=== PATIENT | male | born 1990 | race Caucasian/White ===

== ENCOUNTER 2018-11-15 19:31 | Emergency (ER) | payer MEDICAID ==
--- NOTE | 2018-11-15 20:23 | ED ---
Psychiatric Complaint - HPI Summary HPI Summary: This patient is a 28 year old M presenting to [facility] accompanied by his sister with a chief complaint of SI for awhile without a plan. He reports he has not taken his regularly schedule medications today including Depakote and trazadone Yesterday he cut himself in attempt to harm himself. - History Of Current Complaint Chief Complaint: EDMentalHealth Time Seen by Provider: 11/15/18 20:06 - Allergies/Home Medications Allergies/Adverse Reactions: Allergies Allergy/AdvReac Type Severity Reaction Status Date / Time amoxicillin [From Augmentin] Allergy Unknown Verified 11/15/18 19:36 Reaction Details cefaclor [From Ceclor] Allergy Unknown Verified 11/15/18 19:36 Reaction Details cefuroxime [From Ceftin] Allergy Unknown Verified 11/15/18 19:36 Reaction Details clavulanic acid Allergy Unknown Verified 11/15/18 19:36 [From Augmentin] Reaction Details morphine Allergy Unknown Verified 11/15/18 19:36 Reaction Details Tetanus Vaccines and Toxoid Allergy Unknown Verified 11/15/18 19:36 Reaction Details ziprasidone [From Geodon] Allergy Unknown Verified 11/15/18 19:36 Reaction Details Home Medications: Home Medications Cariprazine HCl [Vraylar] 3 mg PO DAILY 11/15/18 [History Confirmed 11/15/18] Divalproex ER TAB(*) [Depakote ER TAB(*)] 500 mg PO BID 11/15/18 [History Confirmed 11/15/18] Trazodone HCl 25 mg PO DAILY 11/15/18 [History Confirmed 11/15/18] PMH/Surg Hx/FS Hx/Imm Hx Cardiovascular History: Denies: Hx Hypertension Psychiatric History: Reports: Hx Autism Infectious Disease History: No Infectious Disease History: Denies: Traveled Outside the [place] in Last 30 Days Review of Systems Constitutional: Negative Negative: Chest Pain Negative: Shortness Of Breath Negative: Abdominal Pain, Vomiting Positive: Other - laceration Positive: Depressed All Other Systems Reviewed And Are Negative: Yes Physical Exam - Summary Physical Exam Summary: VITAL SIGNS: Reviewed. GENERAL: Patient is a well-developed and nourished male who is lying comfortable in the stretcher. Patient is not in any acute respiratory distress. HEAD AND FACE: No signs of trauma. No ecchymosis, hematomas or skull depressions. No sinus tenderness. EYES: PERRLA, EOMI x 2, No injected conjunctiva, no nystagmus. EARS: Hearing grossly intact. Ear canals and tympanic membranes are within normal limits. MOUTH: Oropharynx within normal limits. NECK: Supple, trachea is midline, no adenopathy, no JVD, no carotid bruit, no c- spine tenderness, neck with full ROM CHEST: Symmetric, no tenderness at palpation LUNGS: Clear to auscultation bilaterally. No wheezing or crackles. CVS: Regular rate and rhythm, S1 and S2 present, no murmurs or gallops appreciated. ABDOMEN: Soft, non-tender. No signs of distention. No rebound no guarding, and no masses palpated. Bowel sounds are normal. EXTREMITIES: FROM in all major joints, no edema, no cyanosis or clubbing. NEURO: Alert and oriented x 3. No acute neurological deficits. Speech is normal and follows commands. SKIN: Dry and warm, Self inflicted laceration over the left wrist. PSYCH: SI without plan Triage Information Reviewed: Yes Vital Signs On Initial Exam: Initial Vitals Temp Pulse Resp BP Pulse Ox 99 F 76 18 125/82 97 11/15/18 19:32 11/15/18 19:32 11/15/18 19:32 11/15/18 19:32 11/15/18 19:32 Vital Signs Reviewed: Yes Diagnostics - Vital Signs Vital Signs Temp Pulse Resp BP Pulse Ox 11/15/18 19:32 99 F 76 18 125/82 97 - Laboratory Result Diagrams: 11/15/18 20:36 11/15/18 20:36 Lab Statement: Any lab studies that have been ordered have been reviewed, and results considered in the medical decision making process. Course/Dx - Course Course Of Treatment: 28 year old M presenting to [facility] accompanied by his sister with a chief complaint of SI for awhile without a plan. Bloodwork, UA, and toxicology report obtained. Patient is medically cleared at 21:29. 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 Wolf, patient will be discharged home with a diagnosis of autism with spectrum disorder. - Differential Dx/Clinical Impression Provider Diagnosis: Autism spectrum disorder Discharge - Sign-Out/Discharge Documenting (check all that apply): Patient Departure Patient Received Moderate/Deep Sedation with Procedure: No - Discharge Plan Condition: Stable Disposition: HOME Patient Education Materials: Autism Spectrum Disorder (DC) Referrals: No Primary Care Phys,NOPCP [Primary Care Provider] - Additional Instructions: Per completion of a mental health evaluation, you are cleared for release and do not require inpatient psychiatric hospitalization at this time. Please go to nearest emergency room or call 911 if safety concerns arise or condition worsens. Important Phone Numbers: [facility] ph:[phone] Su[facility] Prevention [facility] Crisis Services ph:[phone] National Suicide Prevention Lifeline ph:[phone] (7756) [facility] ph:[phone] Alcoholics Anonymous ph:[phone] [facility] ph:[phone] [place] [employer] ph:[phone] Recommendation: Follow up as scheduled with therapist/psychiatrist. - Billing Disposition and Condition Condition: STABLE Disposition: Home - Attestation Statements Document Initiated by Scribe: Yes Documenting Scribe: Stephanie Diehl Provider For Whom Janette is Documenting (Include Credential): Karon Espino MD Scribe Attestation: IStephanie, scribed for Karon Espino MD on 11/16/18 at 0005. Scribe Documentation Reviewed: Yes Provider Attestation: The documentation as recorded by the Stephanie heredia accurately reflects the service I personally performed and the decisions made by Kiersten orlando MD Status of Scribe Document: Viewed
[2018-11-15 20:41] LABS: ABS Basophils 0.1 10^3/ul (0-0.2); ABS Eosinophils 0.1 10^3/ul (0-0.6); ABS Lymphocytes 2.4 10^3/ul (1.0-4.8); ABS Monocytes 0.6 10^3/ul (0-0.8); ABS Neutrophils 4.3 10^3/ul (1.5-7.7); Eosinophil % 1.8 %; Hematocrit 44 % (42-52); Mean Corpuscular HGB Conc 35 g/dL (31-36); Mean Corpuscular Hemoglobin 32 pg (27-31); Mean Corpuscular Volume 93 fL (80-94); Mean Platelet Volume 7.5 fL (7.4-10.4); Nucleated Red Blood Cells % 0.1; Platelet Count 209 10^3/uL (150-450); Red Blood Count 4.67 10^6 /uL (4.18-5.48); Red Cell Distribution Width 14 % (10-15); White Blood Count 7.6 10^3/uL (3.5-10.8)
[2018-11-15 20:57] LABS: ALT 13 U/L (7-52); AST 19 U/L (13-39); Albumin 4.2 g/dL (3.2-5.2); Albumin/Globulin Ratio 1.7 (1-3); Alkaline Phosphatase 49 U/L (34-104); Anion Gap 4 mmol/L (2-11); BUN/Creatinine Ratio 26.3 (8-20); Blood Urea Nitrogen 21 mg/dL (6-24); CO2 Carbon Dioxide 28 mmol/L (22-32); Calcium 9.6 mg/dL (8.6-10.3); Chloride 106 mmol/L (101-111); EGFR African American 141.4 (>60); EGFR Non-African American 116.9 (>60); Globulin 2.5 g/dL (2-4); Glucose 96 mg/dL (70-100); Potassium 4.2 mmol/L (3.5-5.0); Sodium 138 mmol/L (135-145); Total Protein 6.7 g/dL (6.4-8.9)
[2018-11-15 21:09] LABS: Acetaminophen < 15 mcg/mL; Alcohol < 10 mg/dL (<10); Salicylate < 2.50 mg/dL (<30)
[2018-11-15 21:27] LABS: Urine Benzodiazepine Screen None Detected (None Detect); Urine Opiates Screen None Detected (None Detect)
[2018-11-15 21:29] LABS: Urine Appearance Cloudy; Urine Bacteria Absent (Absent); Urine Bilirubin Negative (Negative); Urine Blood Negative (Negative); Urine Color Yellow; Urine Glucose Negative (Negative); Urine Ketones Negative (Negative); Urine Nitrite Negative (Negative); Urine Protein Negative (Negative); Urine Red Blood Cell 2+(6-10/hpf) (Absent); Urine Specific Gravity 1.023 (1.010-1.030); Urine Squamous Epithelial Cell Present (Absent); Urine Urobilinogen Negative (Negative); Urine White Blood Cell 2+(11-20/hpf) (Absent)
[2018-11-15 22:45] VITALS: BP 121/74
== END 2018-11-15 22:15 | disposition home or self-care (01) ==
LOC: ED 19:31
DX: F84.0 Autistic disorder (principal); R45.851 Suicidal ideations; F32.9 Major depressive disorder, single episode, unspecified; Z88.0 Allergy status to penicillin; Z88.2 Allergy status to sulfonamides; Z79.899 Other long term (current) drug therapy
CPT/HCPCS: 36415; 80053; 80164; 80307; 80320; 80329; 81003; 81015; 84443; 85025; 87086; 99284; G0480

== ENCOUNTER 2019-03-07 17:18 | Emergency (ER) | payer MEDICAID ==
--- NOTE | 2019-03-07 18:02 | ED ---
Seizure - HPI Summary HPI Summary: Patient with history of seizure disorder complains of witnessed seizure today lasting a couple minutes. Patient states history of seizures once or twice a month despite being compliant with medications. Patient neurologist Dr. Muse at [facility]. Patient presents to the ED alert and oriented, with no complaints at this time. Denies any other pain, injury or symptoms. - History Of Current Complaint Chief Complaint: EDSeizure Hx Obtained From: Patient Onset/Duration: Sudden Onset, Lasting Minutes Severity Of Seizure: Self-Limited Aggravating Factor(s): Nothing Alleviating Factor(s): Nothing Associated Signs And Symptoms: Negative - Allergies/Home Medications Allergies/Adverse Reactions: Allergies Allergy/AdvReac Type Severity Reaction Status Date / Time amoxicillin [From Augmentin] Allergy Unknown Verified 03/07/19 17:41 Reaction Details cefaclor [From Ceclor] Allergy Unknown Verified 03/07/19 17:41 Reaction Details cefuroxime [From Ceftin] Allergy Unknown Verified 03/07/19 17:41 Reaction Details clavulanic acid Allergy Unknown Verified 03/07/19 17:41 [From Augmentin] Reaction Details morphine Allergy Unknown Verified 03/07/19 17:41 Reaction Details Tetanus Vaccines and Toxoid Allergy Unknown Verified 03/07/19 17:41 Reaction Details ziprasidone [From Geodon] Allergy Unknown Verified 03/07/19 17:41 Reaction Details PMH/Surg Hx/FS Hx/Imm Hx Endocrine/Hematology History: Denies: Hx Anticoagulant Therapy Cardiovascular History: Denies: Hx Hypertension, Hx Pacemaker/ICD History: Denies: Hx Dialysis Sensory History: Denies: Hx Eye Prosthesis Opthamlomology History: Denies: Hx Legally Blind EENT History: Denies: Hx Deafness Neurological History: Denies: Hx Developmental Delay Psychiatric History: Reports: Hx Autism, Hx of Violent Episodes Against Others Denies: Hx Eating Disorder Infectious Disease History: No Infectious Disease History: Denies: Traveled Outside the [place] in Last 30 Days - Family History Known Family History: Positive: Non-Contributory - Social History Alcohol Use: None Substance Use Type: Reports: None Smoking Status (MU): Never Smoked Tobacco Review of Systems Constitutional: Negative Eyes: Negative ENT: Negative Cardiovascular: Negative Respiratory: Negative Gastrointestinal: Negative Genitourinary: Negative Musculoskeletal: Negative Skin: Negative Neurological: Negative Psychological: Normal All Other Systems Reviewed And Are Negative: Yes Physical Exam Triage Information Reviewed: Yes Vital Signs On Initial Exam: Initial Vitals Temp Pulse Resp BP Pulse Ox 98.0 F 70 16 111/72 98 03/07/19 17:28 03/07/19 17:28 03/07/19 17:28 03/07/19 17:28 03/07/19 17:28 Vital Signs Reviewed: Yes Appearance: Positive: Well-Appearing Skin: Positive: Warm Head/Face: Positive: Normal Head/Face Inspection Eyes: Positive: Normal ENT: Positive: Normal ENT inspection Dental: Negative: Dental Fracture @, Bleeding Neck: Positive: Supple Respiratory/Lung Sounds: Positive: Clear to Auscultation Cardiovascular: Positive: Normal Abdomen Description: Positive: Nontender Musculoskeletal: Positive: Normal Neurological: Positive: Normal Psychiatric: Positive: Normal AVPU Assessment: Alert - Datto Coma Scale Best Eye Response: 4 - Spontaneous Best Motor Response: 6 - Obeys Commands Best Verbal Response: 5 - Oriented Coma Scale Total: 15 Procedures - Sedation Patient Received Moderate/Deep Sedation with Procedure: No Diagnostics - Vital Signs Vital Signs Temp Pulse Resp BP Pulse Ox 03/07/19 17:38 74 16 120/69 99 03/07/19 17:37 64 23 98 03/07/19 17:28 98.0 F 70 16 111/72 98 - Laboratory Result Diagrams: 03/07/19 18:14 03/07/19 18:14 Lab Statement: Any lab studies that have been ordered have been reviewed, and results considered in the medical decision making process. Course/Dx - Course Course Of Treatment: Patient with history of seizure disorder complains of witnessed seizure today lasting a couple minutes. Patient states history of seizures once or twice a month despite being compliant with medications. Patient neurologist Dr. Muse at [facility]. Patient presents to the ED alert and oriented, with no complaints at this time. Denies any other pain, injury or symptoms. Vital signs within normal limits. Labs unremarkable. Patient compliant with medication. We'll advise patient follow up with neurologist Dr. Micha sauer [facility] for recurrent seizures. Patient understands and approves plan. - Diagnoses Provider Diagnoses: Seizure disorder Discharge ED - Sign-Out/Discharge Documenting (check all that apply): Patient Departure - Discharge Plan Condition: Stable Disposition: HOME Patient Education Materials: Recurrent Seizures in Adults (ED) Referrals: No Primary Care Phys,NOPCP [Primary Care Provider] - Additional Instructions: Follow-up with your neurologist for recurrent seizures. - Billing Disposition and Condition Condition: STABLE Disposition: Home - Attestation Statements Provider Attestation: I was available for consult. This patient was seen by the LAUREN. The patient was not presented to, seen by, or examined by me. Richard Avila MD
--- OUTSIDE RECORDS SUMMARY | 2019-03-07 18:13 | XMS REPORT | Summary of Care ---
:1990 Demographics Address [address] [place] [address] Home Phone Mobile Phone Email Address Preferred Language Kosovan Marital Status Not or Yarsanism Affiliation Unknown Race White Ethnic Group Not or Author Organization [facility] Address 1 [facility] [place] [address] Care Team Providers Name Role Phone Lucia Ernandez MD Primary Care Provider Reason for Visit Reason Comments Neurologic Problem hospital f/u, recurrent seizures, right handed Encounter Details Date Type Department Care Team Description 02/24/2019 Office Visit [facility] Roselia Man, Seizure disorder (HCC) [address] RAMIREZ-C (Primary Dx) [place] [address] [phone] [place] [address] Allergies Active Allergy Reactions Severity Noted Date Comments Augmentin Hives 09/17/2007 Cefaclor Monohydrate Hives 09/17/2007 Cefuroxime Hives 09/17/2007 Morphine Hives 02/26/2008 Pertussis Immune Globulin Unknown Reaction 09/03/2013 Tetanus Toxoid Swelling 02/26/2008 Ziprasidone Other 02/17/2010 Made b/p go up and come down Geodon documented as of this encounter (statuses as of 02/24/2019) Medications Medication Sig Dispensed Refills Start Date End Date Status TRAZODONE HCL PO Take 25 mg by 0 Active mouth EVERY BEDTIME. divalproex (DEPAKOTE Take 1 Tab by 60 Tab 3 12/30/2018 Active ER) 250 MG Oral TABLET mouth TWICE DAILY. SR 24 HR In addition to 500 mg for total of 750 mg twice daily divalproex (DEPAKOTE Take 1 Tab by 60 Tab 3 12/30/2018 Active ER) 500 MG Oral TABLET mouth TWICE DAILY. SR 24 HR In addition to 250 mg for total of 750 mg twice daily Cariprazine HCl Take 3 mg by mouth 30 Cap 0 02/19/2019 Active (VRAYLAR) 3 MG Oral DAILY. Cap documented as of this encounter (statuses as of 02/24/2019) Active Problems Problem Noted Date Recurrent seizures 12/30/2018 Chest pain 11/03/2018 Bipolar 2 disorder 09/26/2018 Overview: -continue home dose of lithium and vraylar -[place] level pending Personality disorder, unspecified 05/05/2018 Overview: -Patient has a history of personality disorder -He has been admitted multiple times for his suicidal ideation as well as behavioral issues -Currently stable Fracture of metacarpal base of right hand, closed 12/21/2016 Closed displaced fracture of carpal bone of right wrist with routine 2016 healing Myopia of both eyes 10/31/2016 Marfan's syndrome 09/01/2013 Overview: -Stable 08/28/12: Echocardiogram FINAL IMPRESSION: Normal LV size and wall thickness. Normal LV systolic function with no regional wall motion abnormalities and estimated LV EF 55-60%. Normal LA size. Mildly dilated RA and RV size and preserved RV function. Structurally normal aortic valve. Mild mitral valve scalloping with mild mitral regurgitation. Mild tricuspid and pulmonic regurgitation. No pulmonary hypertension. No pericardial effusion. Stretched PFO with left to right shunt and calculated Qp:Qs 1.26. Normal ascending aorta and arch. In direct visual comparison with resting images from [facility] dated 02/20/2010, there is no significant interval change. Seizure disorder 09/17/2007 Overview: -Patient presents to ED in a postictal phase after being found by his mother seizing -In the ED, the patient also had another episode of seizure and was given Ativan -Patient states that he just forgot to take his dose of Depakote today -Lab in the ED showed patient has subtherapeutic levels of valproic acid -Patient receiving 500 mg of Depacon, will continue with home dose of Depakote in the morning -Patient to receive MRI in the morning, neurology -Patient to be placed on telemetry -[place] level pending -seizure precaution ADHD (attention deficit hyperactivity disorder) 09/17/2007 Overview: -Stable documented as of this encounter (statuses as of 02/24/2019) Immunizations Name Administration Dates Next Due DTAP Vaccine 02/25/1997, 05/18/1993, 1992, 1992, 1992 HIB 1992, 1992, 1992 Hepatitis A Vaccine Peds 01/11/2009 Hepatitis B Vaccine 02/25/1997, 1992, 1992 Influenza Virus Vaccine Pres Free 6-35 04/24/1993, 03/21/1993 Months MENINGOCOCCAL CONJUGATE VACCINE 01/11/2009 MMR VACCINE 02/25/1997, 05/18/1993 Polio - Inactivated Vaccine 02/25/1997, 05/18/1993, 1992, 1992 documented as of this encounter Social History Tobacco Use Types Packs/Day Years Used Date Current Every Day Smoker Cigarettes 1 1.5 Smokeless Tobacco: Never Used Comments: "over a pack a day" Alcohol Use Drinks/Week oz/Week Comments Yes occasionally, last drank 1 drink 10 days ago Sex Assigned at Date Recorded Not on file Job Start Date Occupation Industry Not on file Not on file Not on file Travel History Travel Start Travel End No recent travel history available. documented as of this encounter Last Filed Vital Signs Vital Sign Reading Time Taken Comments Blood Pressure 105/65 02/24/2019 9:57 AM EDT Pulse 71 02/24/2019 9:57 AM EDT Temperature - - Respiratory Rate - - Oxygen Saturation - - Inhaled Oxygen Concentration - - Weight 71.2 kg (157 lb) 02/24/2019 9:57 AM EDT Height 194.3 cm (6' 4.5") 02/24/2019 9:57 AM EDT Body Mass Index 18.86 02/24/2019 9:57 AM EDT documented in this encounter Patient Instructions Patient InstructionsRoselia Man PA-C - 02/24/2019 10:00 AM EDTCut back on caffeine. Try to go to bed earlier, around 10:30pm Please do the blood work as discussed at 2 orange section. Will inform you of these results. Follow up here in Neurology in 6 weeks. Call in the meantime if there are any new problems or concerns documented in this encounter Progress Notes Roselia Man PA-C - 02/24/2019 10:00 AM EDT PATIENT: Rob Flor : 1990 DATE OF SERVICE: 02/24/2019 REFERRING PRACTITIONER: Art PRIMARY CARE PROVIDER: Lucia Ernandez CHIEF COMPLAINT: Chief Complaint Patient presents with Neurologic Problem hospital f/u, recurrent seizures, right handed HISTORY OF PRESENT ILLNESS: Rob Flor is a 29-y.o. male who presents for a follow-up of seizures. He was admitted to the [facility] on 02/16 due to suicidal thoughts. Medications were not changed. Reports he is doing well. He is taking Depakote 750 mg twice daily. Denies missing any doses, taking at 10 am and 10 pm. He is going to bed later around 11:30 or after as he stays up late playing video games. He has been having 1-2 episodes per week of seizures where his eyes will go back and forth and flutter for up to 5 minutes. Had an episode of full body convulsions 2 weeks ago. Denies any loss of bowelor bladder control. These episodes are witnessed by his friend sometimes and sometimes by his mother. He is unaware of them happening. Reports afterward episodes, he feels dizzy described as "feels like my head is spinning" and has badheadache. Past Medical History: Diagnosis Date ADHD (attention deficit hyperactivity disorder) 09/17/2007 Autistic disorder Depression Generalized convulsive epilepsy Marfan's disease Seizure disorder (HCC) 09/17/2007 Past Surgical History: Procedure Laterality Date KNEE ARTHROSCOPY Left 05/10/2016 ACL and meniscus surgery PECTUS DEFORMITY REPAIR TONSILLECTOMY TYMPANOSTOMY, LOCAL/TOPIC ANESTHESIA x4 Family History Problem Relation Age of Onset Alcohol/Drug Sister Depression/Depressed Sister Bipolar Disorder Sister Hay Fever Father Asthma Father Allergies Father No Known Problems Mother Diabetes No family history Glaucoma No family history Blindness No family history Macular Degeneration No family history Other Eye Problems No family history Current Outpatient Medications Medication Sig Cariprazine HCl (VRAYLAR) 3 MG Oral Cap Take 3 mg by mouth DAILY. divalproex (DEPAKOTE ER) 250 MG Oral TABLET SR 24 HR Take 1 Tab by mouth TWICE DAILY. In addition to 500 mg for total of 750 mg twice daily divalproex (DEPAKOTE ER) 500 MG Oral TABLET SR 24 HR Take 1 Tab by mouth TWICE DAILY. In addition to 250 mg for total of 750 mg twice daily TRAZODONE HCL PO Take 25 mg by mouth EVERY BEDTIME. No current facility-administered medications for this visit. Allergies Allergen Reactions Augmentin Hives Ceclor Cd [Cefaclor Monohydrate] Hives Ceftin [Cefuroxime] Hives Morphine Hives Pertussis Immune Globulin Unknown Reaction Tetanus Toxoid Swelling Ziprasidone Other Made b/p go up and come down [place] Social History Socioeconomic History Marital status: Single Spouse name: Not on file Number of children: Not on file Years of education: Not on file Highest education level: Not on file Occupational History Not on file Social Needs Financial resource strain: Not on file Food insecurity: Worry: Not on file Inability: Not on file Transportation needs: Medical: Not on file Non-medical: Not on file Tobacco Use Smoking status: Current Every Day Smoker Packs/day: 1.00 Years: 1.50 Pack years: 1.50 Types: Cigarettes Smokeless tobacco: Never Used Tobacco comment: "over a pack a day" Substance and Sexual Activity Alcohol use: Yes Comment: occasionally, last drank 1 drink 10 days ago Drug use: Not Currently Types: Marijuana Comment: no drug use, none X 3 mos Sexual activity: Never Partners: Female Lifestyle Physical activity: Days per week: Not on file Minutes per session: Not on file Stress: Not on file Relationships Social connections: Talks on phone: Not on file Gets together: Not on file Attends yazidism service: Not on file Active member of club or organization: Not on file Attends meetings of clubs or organizations: Not on file Relationship status: Not on file Intimate partner violence: Fear of current or ex partner: Not on file Emotionally abused: Not on file Physically abused: Not on file Forced sexual activity: Not on file Other Topics Concern Not on file Social History Narrative Not working. REVIEW OF SYSTEMS: A comprehensive review of systems was negative except for as noted in the history of present illness/subjective. PHYSICAL EXAMINATION: BP 105/65 (BP Location: Right arm, Patient Position: Sitting) | Pulse 71 | Ht 6' 4.5" (1.943 m) |Wt 157 lb (71.2 kg) | BMI 18.86 kg/m Body mass index is 18.86 kg/m. GENERAL: alert, oriented, no acute distress. SKIN: normal, no rashes or abnormalities noted. HEENT: pupils equal, round, reactive to light, extraocular movement intact and normal dentition. NECK: supple, no masses, no adenopathy, no bruit. LUNGS: clear to auscultation bilaterally. HEART: regular rhythm, no murmurs, no gallops, no rubs. EXTREMITIES: no clubbing, cyanosis, or edema, normal pulses. NEUROLOGICAL: Alert and oriented x3. Visual purvis are full to confrontation, PERRL, EOM intact, no nystagmus. Facial sensation is intact bilaterally, Face is symmetric with normal eye closure and smile. Hearingis normal to whisper test. Palate symmetrical. Phonation is normal. Head turning and shoulder shrug are intact. Tongue is midline with normal movements Motor: Muscle tone normal, proximal and distal strength 5/5 B/L upper and lower extremities Sensory exam normal in all extremities. DTRs intact, plantar reflexes downgoing bilaterally Coordination: finger to nose normal bilaterally, test for rapid alternating movements normal and cerebellar arm drift absent bilaterally. Gait and station: normal IMPRESSION/PLAN: ICD-9-CM ICD-10-CM 1. Seizure disorder (HCC) 345.90 G40.909 VALPROIC ACID Advised patient to decrease caffeine intake and try to go to bed earlier at night. We will do blood work to check Depakote level and may need to increase Depakote dose. If he continues to have frequent seizure episodes, will consider 24 hour ambulatory EEG. Follow up here in Neurology in 6 weeks. Call in the meantime if there are any new problems or concerns Close monitoring of AED levels, blood chemistries and blood counts is indicated to observe for toxicity and to maintain therapeutic levels. Author: Roselia Man PA-C 02/24/2019 10:17 documented in this encounter Plan of Treatment Date Type Specialty Care Team Description 03/02/2019 Office Visit [facility] Lucia Ernandez MD [address] [place] [id number] 04/07/2019 Office Visit Neurology Roselia Man PA-C [address] [place] [address] [phone] 11/18/2019 Office Visit Cardiology Kitty Iglesias CRNP 1 [place] [address] [phone] Name Type Priority Associated Diagnoses Order Schedule VALPROIC ACID Lab Routine Seizure disorder (HCC) Expected: 02/24/2019 (Approximate), Expires: 02/25/2020 COMPREHENSIVE METABOLIC Lab Routine Seizure disorder (HCC) Expected: 2018 PANEL (Approximate), Expires: 02/25/2020 Health Maintenance Due Date Last Done Comments PNEUMOCOCCAL 0-64 YRS (1 of - 01/26/1998 PPSV23) DEPRESSION SCREENING 2004 HIV SCREENING 01/26/2007 INFLUENZA VACCINE (#1) 2019 MENINGOCOCCAL VACCINE IMM Completed 01/11/2009 HPV IMMUNIZATION SERIES Aged Out No longer eligible based on patient's age to complete this topic documented as of this encounter Goals Goal Patient Goal Associated Recent Patient-Stated? Author Type Problems Progress Depression Depression No pablo Nassar (PHQ-9) MALINDA Urban total score < 5 Note: This is an individualized treatment (depression) goal for Rob Flor: Displayed above is your goal for a depression screening (PHQ-9) score that would indicate good control of your depression. Work with your Postal Carrier General No Rajni Nassar RN Note: This is an individualized treatment (frequent ED use) goal for Rob Flor : Please work with your Postal Carrier, who will assist you in meeting your goals of care. Keep a regular sleep schedule Lifestyle No Rajni Nassar RN Note: This is an individualized lifestyle goal for Rob Flor: Please maintain a regular sleep schedule. This may help with some symptoms of depression. Regular appointments with primary care provider Lifestyle No Rajni Nassar RN (PCP) Note: This is an individualized lifestyle goal for Rob Flor: Please schedule regular visits with your primary care provider (PCP). Care provided in your PCP's office can help reduce your need for additional trips to the Emergency Room. Take all prescribed medications as directed Self-management No Rajni Nassar RN Note: This is an individualized self-management goal for Rob Flor: Please take all prescribed medications as directed. 1. Do not skip doses. If you cannot afford your medications, talk with your doctor. 2. Use a pill reminder system such as a pill box if needed. Your pharmacist can help you with this. 3. Contact your Pharmacy 5 days before your medication runs out. If you cannot take your medications for any reasons, talk with your doctor. 4. Please bring all of your medication bottles and inhalers (or a list of all your medications/inhalers) with you to every visit. Potential barriers to meeting all of your care plan goals will continue to be addressed on an ongoing basis. documented as of this encounter Results Not on filedocumented in this encounter Visit Diagnoses Diagnosis Seizure disorder (HCC) - Primary Unspecified epilepsy without mention of intractable epilepsy documented in this encounter Insurance Payer Benefit Plan / Subscriber ID Effective Dates Phone Address Type Group [place] xxxxxxxx 2016-Present [place] Guarantor Name Account Type Relation to Date of Phone Billing Patient Address ChachoRob Dheeraj Personal/Family 1990 [address] ([place]) [place] [address] documented as of this encounter Advance Directives Code Status Date Activated Date Inactivated Comments Full Code 11/03/2018 4:20 AM 11/03/2018 1:51 PM Does the patient have decision making capacity? Yes Order was discussed with: Patient I discussed all options and patient/surrogate requested and agreed to: Full Code Full Code 09/26/2018 1:48 AM 09/27/2018 11:42 AM Does the patient have decision making capacity? Yes Order was discussed with: Patient I discussed all options and patient/surrogate requested and agreed to: Full Code
--- OUTSIDE RECORDS SUMMARY | 2019-03-07 18:13 | XMS REPORT | Summary of Care ---
:1990 Demographics Address [address] [place] [address] Home Phone Mobile Phone Email Address Preferred Language Ethiopian Marital Status Not or Episcopalian Affiliation Unknown Race White Ethnic Group Not or Author Organization [facility] Address 1 [facility] [place] [address] Care Team Providers Name Role Phone Lucia Ernandez MD Primary Care Provider Reason for Visit Reason Comments Back Pain Encounter Details Date Type Department Care Team Description 02/13/2019 Emergency [facility] Department Trae Wan MD Emergency [address] 1 [facility] [place] [address] [place] [address] [phone] Allergies Active Allergy Reactions Severity Noted Date Comments Augmentin Hives 09/17/2007 Cefaclor Monohydrate Hives 09/17/2007 Cefuroxime Hives 09/17/2007 Morphine Hives 02/26/2008 Pertussis Immune Globulin Unknown Reaction 09/03/2013 Tetanus Toxoid Swelling 02/26/2008 Ziprasidone Other 02/17/2010 Made b/p go up and come down Geodon documented as of this encounter (statuses as of 02/14/2019) Medications Medication Sig Dispensed Refills Start Date End Date Status Cariprazine HCl Take by mouth 0 Active (VRAYLAR) 1.5 MG Oral DAILY. Cap TRAZODONE HCL PO Take 25 mg by [...] for total of 750 mg twice daily indomethacin (INDOCIN) Take 1 Cap by 60 Cap 0 02/13/2019 Active 50 MG Oral Cap mouth THREE TIMES DAILY NEEDED (for rib pain). documented as of this encounter (statuses as of 02/14/2019) Active Problems Problem Noted Date Recurrent seizures 12/30/2018 Chest pain 11/03/2018 Bipolar 2 disorder 09/26/2018 Overview: -continue home dose of lithium and vraylar -[place] level pending Personality disorder, unspecified 05/05/2018 Overview: [...] neurology -Patient to be placed on telemetry -[place] level pending -seizure precaution ADHD (attention deficit hyperactivity disorder) 09/17/2007 Overview: -Stable documented as of this encounter (statuses as of 02/14/2019) Immunizations Name Administration Dates Next Due DTAP [...] Cigarettes 1 1.5 Smokeless Tobacco: Never Used Alcohol Use Drinks/Week oz/Week Comments Yes occasionally Sex Assigned at Date Recorded Not on file Job Start Date Occupation Industry Not on file Not on file Not on file Travel History Travel Start Travel End No recent travel history available. documented as of this encounter Last Filed Vital Signs Vital Sign Reading Time Taken Comments Blood Pressure 104/60 02/13/2019 7:26 PM EDT Pulse 69 02/13/2019 7:26 PM EDT Temperature 36.8 02/13/2019 7:26 PM EDT C (98.3 F) Respiratory Rate 16 02/13/2019 7:26 PM EDT Oxygen Saturation 99% 02/13/2019 7:31 PM EDT Inhaled Oxygen Concentration - - Weight - - Height 193 cm (6' 4") 02/13/2019 7:26 PM EDT Body Mass Index - - documented in this encounter Discharge Instructions Trae Pinto MD - 02/13/2019See attached. AttachmentsThe following attachments cannot be sent through Care Everywhere.RIB CONTUSION (AFTERCARE(R) INSTRUCTIONS(ER/ED)) (BELARUSIAN)documented in this encounter Plan of Treatment Date Type Specialty Care Team Description 11/18/2019 Office Visit Cardiology Kitty Iglesias CRNP 1 [place] [address] Health Maintenance Due Date Last Done Comments PNEUMOCOCCAL 0-64 YRS (1 of 1 - 01/26/1998 PPSV23) DEPRESSION SCREENING 2004 HIV SCREENING 01/26/2007 INFLUENZA VACCINE (#1) 2019 MENINGOCOCCAL VACCINE IMM Completed 01/11/2009 HPV IMMUNIZATION SERIES Aged Out No longer eligible based on patient's age to complete this topic documented as of this encounter Goals Goal Patient Goal Associated Recent Patient-Stated? Author Type Problems Progress Depression Depression pablo Franco (PHQ-9) MALINDA Urban total score < 5 Note: This is an individualized treatment (depression) goal for Rob Flor: Displayed above is your goal for a depression screening (PHQ-9) score that would indicate good control of your depression. Work with your Calender Feeder General No Rajni Nassar RN Note: This is an individualized treatment (frequent ED use) goal for Rob Flor : Please work with your Calender Feeder, who will assist you in meeting your goals of care. Keep a regular sleep schedule Lifestyle Rajni Franco RN Note: This is an individualized lifestyle goal for Rob Flor: Please maintain a regular sleep schedule. This may help with some symptoms of depression. Regular appointments with primary care provider Lifestyle Rajni Franco RN (PCP) Note: This is an individualized lifestyle goal for Rob Flor: Please schedule regular visits with your primary care provider (PCP). Care provided in your PCP's office can help reduce your need for additional trips to the Emergency Room. Take all prescribed medications as directed Self-management Rajni Franco RN Note: This is an individualized self-management [...] ongoing basis. documented as of this encounter Procedures Procedure Name Priority Date/Time Associated Diagnosis Comments XR RIBS UNILAT WITH STAT 02/13/2019 9:10 PM Results for this PA CHEST MIN 3 EDT procedure are in VIEWS RIGHT the results section. documented in this encounter Results XR RIBS UNILAT WITH PA CHEST MIN 3 VIEWS RIGHT (02/13/2019 9:10 PM EDT) Specimen Impressions Performed At 1. No displaced right rib fracture. Clear lungs. Signed by Gumaro Ramirez on 02/13/2019 9:14 PM Narrative Performed At Procedure: XR RIBS UNILAT WITH PA CHEST MIN 3 VIEWS RIGHT Date of service: 02/13/2019 9:05 PM History: 29 years, Male, "R lateral, lower rib pain, trauma" Technique: 1 PA view of chest and 2 views of right ribs Comparison: 12/30/18 Findings: The cardiomediastinal silhouette is within normal limits. The lungs are clear. There is no pleural effusion or pneumothorax. There is no displaced right rib fracture. Procedure Note Interface, Rad Results - 02/13/2019 9:16 PM EDT Procedure: XR RIBS UNILAT WITH PA CHEST MIN 3 VIEWS RIGHT Date of service: 02/13/2019 9:05 PM History: 29 years, Male, "R lateral, lower rib pain, trauma" Technique: 1 PA view of chest and 2 views of right ribs Comparison: 12/30/18 Findings: The cardiomediastinal silhouette is within normal limits. The lungs are clear. There is no pleural effusion or pneumothorax. There is no displaced right rib fracture. IMPRESSION 1. No displaced right rib fracture. Clear lungs. Signed by Gumaro Ramirez on 02/13/2019 9:14 PM documented in this encounter Visit Diagnoses Diagnosis Rib pain - Primary Chest pain, unspecified documented in this encounter Administered Medications Medication Order MAR Action Action Date Dose Rate Site HYDROcodone-acetaminophen (NORCO) Given 02/13/2019 8:37 PM EDT 1 Tab 5-325 mg 1 Tab 1 Tab, Oral, NOW, 1 dose, 02/13/19 at 2034 documented in this encounter Insurance Payer Benefit Plan / Subscriber ID Effective Dates Phone Address Type Group [place] xxxxxxxx 2016-Present [place] Guarantor Name Account Type Relation to Date of Phone Billing Patient Address Rob Flor Personal/Family 1990 [address] ([address]) [place] [address] documented as of this encounter Advance Directives [...]
--- OUTSIDE RECORDS SUMMARY | 2019-03-07 18:13 | XMS REPORT | Clinical Summary ---
:1990 Demographics Address [address] [place] [address] Home Phone Mobile Phone Email Address Preferred Language Slovenian Marital Status Not or Taoism Affiliation Unknown Race White Ethnic Group Not or Author Organization [facility] Address [address] [place] [address] Care Team Providers Name Role Phone Lucia Ernandez MD Primary Care Provider Allergies Active Allergy Reactions Severity Noted Date Comments Augmentin Hives 09/17/2007 Cefaclor Monohydrate Hives 09/17/2007 Cefuroxime Hives 09/17/2007 Morphine Hives 02/26/2008 Pertussis Immune Globulin Unknown Reaction 09/03/2013 Tetanus Toxoid Swelling 02/26/2008 Ziprasidone Other 02/17/2010 Made b/p go up and come down Geodon Medications Medication Sig Dispensed Refills Start Date [...] Active (VRAYLAR) 3 MG Oral DAILY. Cap Active Problems Problem Noted Date Recurrent seizures 12/30/2018 Chest pain 11/03/2018 Bipolar 2 disorder 09/26/2018 Overview: -continue home dose of lithium and vraylar -[place] level pending Personality disorder, unspecified 05/05/2018 Overview: [...] neurology -Patient to be placed on telemetry -[place] level pending -seizure precaution ADHD (attention deficit hyperactivity disorder) 09/17/2007 Overview: -Stable Encounters Date Type Specialty Care Team Description 02/19/2019 Telephone Family Practice [facility] 02/13/2019 Emergency Emergency Medicine [facility] Trae Ferrell MD 02/13/2019 Office Visit [facility] Tk, Abbie of back, Paty, DIAL BRUSHER initial encounter (Primary Dx) 02/09/2019 - Emergency Emergency Medicine Oleg Ogden Emergency 02/10/2019 MD Karson 02/09/2019 Telephone Family Practice Patt Sevilla Show 02/08/2019 - Emergency Emergency Medicine Emergency 02/09/2019 02/07/2019 Emergency Emergency Medicine Emergency 02/05/2019 Emergency Emergency Medicine Emergency 02/05/2019 Orders Only Family Practice Lucia Ernandez MD 2019 Emergency Emergency Medicine Josue Bar, Emergency 01/10/2019 Emergency Emergency Medicine [facility] Emergency Cortney, DO 12/30/2018 Office Visit Neurology Roselia Man Recurrent praveen Singh PA-C ([facility]) (Primary Dx) 12/30/2018 Emergency Emergency Medicine [facility] Emergency Trae Ferrell MD 12/30/2018 Emergency Emergency Medicine Emergency 12/30/2018 Orders Only Neurology Roselia Man PA-C 12/28/2018 Emergency Emergency Medicine Josue Bar, Emergency 12/22/2018 Emergency Emergency Medicine Mohinder Gregorio, Emergency 12/22/2018 Telephone Neurology Jennifer Lam Rj 12/19/2018 Emergency Emergency Medicine Josue Bar, Emergency 12/17/2018 Emergency Emergency Medicine Emergency 12/11/2018 Emergency Emergency Medicine Oleg Ogden MD 12/08/2018 - Emergency Emergency Medicine [facility], Emergency 12/09/2018 Enrico Martinez MD 12/05/2018 Emergency Emergency Medicine [facility], 11/24/2018 Hospital Encounter Radiology Outpatient from Last 3 Months Immunizations Name Administration Dates Next Due DTAP Vaccine 02/25/1997, 05/18/1993, 1992, 1992, 1992 HIB 1992, 1992, 1992 Hepatitis A Vaccine Peds 01/11/2009 Hepatitis B Vaccine 02/25/1997, 1992, 1992 Influenza Virus Vaccine Pres Free 6-35 04/24/1993, 03/21/1993 Months MENINGOCOCCAL CONJUGATE VACCINE 01/11/2009 MMR VACCINE 02/25/1997, 05/18/1993 Polio - Inactivated Vaccine 02/25/1997, 05/18/1993, 1992, 1992 Family History Medical History Relation Name Comments Allergies Father Asthma Father Hay Fever Father No Known Problems Mother Alcohol/Drug Sister Bipolar Disorder Sister Depression/Depressed Sister Blindness No family history Diabetes No family history Glaucoma No family history Macular Degeneration No family history Other Eye Problems No family history Relation Name Status Comments Father Alive Mother Alive Sister Social History Tobacco Use Types Packs/Day Years Used Date Current Every Day Smoker Cigarettes 1 1.5 Smokeless Tobacco: Never Used Tobacco Cessation: Ready to Quit: No; Counseling Given: Yes Comments: "over a pack a day" Alcohol Use Drinks/Week oz/Week Comments Yes occasionally, last drank 1 drink 10 days ago Sex Assigned at Date Recorded Not on file Job Start Date Occupation Industry Not on file Not on file Not on file Travel History Travel Start Travel End No recent travel history available. Last Filed Vital Signs Vital Sign Reading Time Taken Comments Blood Pressure 82/61 02/18/2019 6:01 AM EDT Pulse 86 02/18/2019 6:00 AM EDT Temperature 36.9 02/18/2019 6:00 AM EDT C (98.4 F) Respiratory Rate 18 02/18/2019 6:00 AM EDT Oxygen Saturation 98% 02/15/2019 11:05 PM EDT Inhaled Oxygen Concentration - - Weight 69.2 kg (152 lb 9.6 oz) 02/16/2019 8:00 AM EDT Height 194.3 cm (6' 4.5") 02/15/2019 11:30 PM EDT Body Mass Index 18.33 02/15/2019 11:30 PM EDT Plan of Treatment Date Type Specialty Care Team Description 03/02/2019 Office Visit Family Practice Lucia Ernandez MD [address] [place] [phone] 11/18/2019 Office Visit Cardiology Kitty Iglesias CRNP [address] [place] [address] Health Maintenance Due Date Last Done Comments PNEUMOCOCCAL 0-64 YRS (1 of - 01/26/1998 PPSV23) DEPRESSION SCREENING 2004 HIV SCREENING 01/26/2007 INFLUENZA VACCINE (#1) 2019 MENINGOCOCCAL VACCINE IMM Completed 01/11/2009 HPV IMMUNIZATION SERIES Aged Out No longer eligible based on patient's age to complete this topic Goals Goal Patient Goal Associated Recent Patient-Stated? Author Type Problems Progress Depression Depression No Cesario, screen (PHQ-9) MALINDA Urban total score < 5 Note: This is an individualized treatment (depression) goal for Rob Flor: Displayed above is your goal for a depression screening (PHQ-9) score that would indicate good control of your depression. Work with your Preload Supervisor General Rajni Franco RN Note: This is an individualized treatment (frequent ED use) goal for Rob Flor : Please work with your Preload Supervisor, who will assist you in meeting your goals of care. Keep a regular sleep schedule Rajni Clinton RN Note: This is an individualized lifestyle [...] to be addressed on an ongoing basis. Procedures Procedure Name Priority Date/Time Associated Comments Diagnosis CBC NO DIFFERENTIAL STAT 02/15/2019 9:24 Results for this PM EDT procedure are in the results section. ACETAMINOPHEN LEVEL STAT 02/15/2019 9:24 Results for this PM EDT procedure are in the results section. SALICYLATE LEVEL STAT 02/15/2019 9:24 Results for this PM EDT procedure are in the results section. ALCOHOL LEVEL, MEDICAL STAT 02/15/2019 9:24 Results for this PM EDT procedure are in the results section. URINE DRUG SCREEN STAT 02/15/2019 9:24 Results for this PM EDT procedure are in the results section. THYROID STIMULATING STAT 02/15/2019 9:24 Results for this HORMONE PM EDT procedure are in the results section. COMPREHENSIVE STAT 02/15/2019 9:24 Results for this METABOLIC PANEL PM EDT procedure are in the results section. XR RIBS UNILAT WITH PA STAT 02/13/2019 9:10 Results for this CHEST MIN 3 VIEWS PM EDT procedure are in RIGHT the results section. URINE DRUG SCREEN STAT 02/09/2019 10:47 Results for this PM EDT procedure are in the results section. CBC NO DIFFERENTIAL STAT 02/09/2019 10:39 Results for this PM EDT procedure are in the results section. ACETAMINOPHEN LEVEL STAT 02/09/2019 10:39 Results for this PM EDT procedure are in the results section. SALICYLATE LEVEL STAT 02/09/2019 10:39 Results for this PM EDT procedure are in the results section. ALCOHOL LEVEL, MEDICAL STAT 02/09/2019 10:39 Results for this PM EDT procedure are in the results section. THYROID STIMULATING STAT 02/09/2019 10:39 Results for this HORMONE PM EDT procedure are in the results section. COMPREHENSIVE STAT 02/09/2019 10:39 Results for this METABOLIC PANEL PM EDT procedure are in the results section. CBC NO DIFFERENTIAL STAT 02/08/2019 9:18 Results for this PM EDT procedure are in the results section. ACETAMINOPHEN LEVEL STAT 02/08/2019 9:18 Results for this PM EDT procedure are in the results section. SALICYLATE LEVEL STAT 02/08/2019 9:18 Results for this PM EDT procedure are in the results section. ALCOHOL LEVEL, MEDICAL STAT 02/08/2019 9:18 Results for this PM EDT procedure are in the results section. URINE DRUG SCREEN STAT 02/08/2019 9:18 Results for this PM EDT procedure are in the results section. THYROID STIMULATING STAT 02/08/2019 9:18 Results for this HORMONE PM EDT procedure are in the results section. COMPREHENSIVE STAT 02/08/2019 9:18 Results for this METABOLIC PANEL PM EDT procedure are in the results section. XR ANKLE MIN 3 VIEWS STAT 2019 5:19 Results for this LEFT (STANDARD) PM EDT procedure are in the results section. ALCOHOL LEVEL, MEDICAL STAT 01/10/2019 5:39 Results for this AM EDT procedure are in the results section. IN PT/ED 12 LEAD EKG STAT 01/10/2019 5:28 AM EDT VALPROIC ACID STAT 12/30/2018 4:31 Results for this AM EDT procedure are in the results section. SALICYLATE LEVEL STAT 12/30/2018 4:31 Results for this AM EDT procedure are in the results section. ALCOHOL LEVEL, MEDICAL STAT 12/30/2018 4:31 Results for this AM EDT procedure are in the results section. ACETAMINOPHEN LEVEL STAT 12/30/2018 4:31 Results for this AM EDT procedure are in the results section. NT PROBNP STAT 12/30/2018 4:31 Results for this AM EDT procedure are in the results section. TROPONIN STAT 12/30/2018 4:31 Results for this AM EDT procedure are in the results section. COMPREHENSIVE STAT 12/30/2018 4:31 Results for this METABOLIC PANEL AM EDT procedure are in the results section. CBC WITH DIFFERENTIAL STAT 12/30/2018 4:31 Results for this AM EDT procedure are in the results section. IN PT/ED 12 LEAD EKG STAT 12/30/2018 4:14 AM EDT XR CHEST 2 VIEW PA AND STAT 12/30/2018 4:13 Results for this LATERAL (STANDARD) AM EDT procedure are in the results section. VALPROIC ACID STAT 12/22/2018 9:29 Results for this PM EDT procedure are in the results section. CHEM 8 I-STAT (POCT) Routine 12/19/2018 8:36 Results for this PM EDT procedure are in the results section. COMPREHENSIVE STAT 12/19/2018 8:33 Results for this METABOLIC PANEL PM EDT procedure are in the results section. CBC WITH DIFFERENTIAL STAT 12/19/2018 8:33 Results for this PM EDT procedure are in the results section. VALPROIC ACID STAT 12/19/2018 8:33 Results for this PM EDT procedure are in the results section. URINE CULTURE (C&S) STAT 12/17/2018 9:34 Results for this PM EDT procedure are in the results section. URINE MICROSCOPIC WITH STAT 12/17/2018 9:34 Results for this REFLEX CULTURE PM EDT procedure are in the results section. URINALYSIS (LAB) WITH STAT 12/17/2018 9:34 Results for this REFLEX CULTURE PM EDT procedure are in the results section. URINE DRUG SCREEN STAT 12/17/2018 9:34 Results for this PM EDT procedure are in the results section. VALPROIC ACID STAT 12/17/2018 8:49 Results for this PM EDT procedure are in the results section. CBC NO DIFFERENTIAL STAT 12/17/2018 8:49 Results for this PM EDT procedure are in the results section. ACETAMINOPHEN LEVEL STAT 12/17/2018 8:49 Results for this PM EDT procedure are in the results section. SALICYLATE LEVEL STAT 12/17/2018 8:49 Results for this PM EDT procedure are in the results section. ALCOHOL LEVEL, MEDICAL STAT 12/17/2018 8:49 Results for this PM EDT procedure are in the results section. THYROID STIMULATING STAT 12/17/2018 8:49 Results for this HORMONE PM EDT procedure are in the results section. COMPREHENSIVE STAT 12/17/2018 8:49 Results for this METABOLIC PANEL PM EDT procedure are in the results section. ACETAMINOPHEN LEVEL STAT 12/11/2018 7:00 Results for this PM EDT procedure are in the results section. SALICYLATE LEVEL STAT 12/11/2018 7:00 Results for this PM EDT procedure are in the results section. ALCOHOL LEVEL, MEDICAL STAT 12/11/2018 7:00 Results for this PM EDT procedure are in the results section. THYROID STIMULATING STAT 12/11/2018 7:00 Results for this HORMONE PM EDT procedure are in the results section. COMPREHENSIVE STAT 12/11/2018 7:00 Results for this METABOLIC PANEL PM EDT procedure are in the results section. CBC WITH DIFFERENTIAL STAT 12/11/2018 7:00 Results for this PM EDT procedure are in the results section. XR CHEST 2 VIEW PA AND STAT 12/08/2018 11:38 Results for this LATERAL (STANDARD) PM EDT procedure are in the results section. IN PT/ED 12 LEAD EKG STAT 12/08/2018 10:18 Precordial pain Results for this PM EDT procedure are in the results section. URINE CULTURE (C&S) STAT 12/05/2018 2:57 Results for this AM EDT procedure are in the results section. URINE MICROSCOPIC WITH STAT 12/05/2018 2:57 Results for this REFLEX CULTURE AM EDT procedure are in the results section. URINALYSIS (LAB) WITH STAT 12/05/2018 2:57 Results for this REFLEX CULTURE AM EDT procedure are in the results section. URINE DRUG SCREEN STAT 12/05/2018 2:57 Results for this AM EDT procedure are in the results section. IN PT/ED 12 LEAD EKG STAT 12/05/2018 2:06 Seizure (HCC) Results for this AM EDT procedure are in the results section. PROLACTIN STAT 12/05/2018 2:03 Results for this AM EDT procedure are in the results section. VALPROIC ACID STAT 12/05/2018 2:03 Results for this AM EDT procedure are in the results section. COMPREHENSIVE STAT 12/05/2018 2:03 Results for this METABOLIC PANEL AM EDT procedure are in the results section. CBC WITH DIFFERENTIAL STAT 12/05/2018 2:03 Results for this AM EDT procedure are in the results section. CT CHEST ABDOMEN Routine 11/24/2018 6:28 Marfan's syndrome Results for this PELVIS ANGIOGRAPHY PM EDT procedure are in [facility] the results section. from Last 3 Months Results URINE DRUG SCREEN (02/15/2019 9:24 PM EDT)Only the most recent of5 resultswithin the time period is included. Amphetamines Negative Negative [facility] Barbiturates Negative Negative [facility] Benzodiazepine Negative Negative [facility] Cannabinoids Negative Negative [facility] Cocaine Negative Negative [facility] Methadone Negative Negative [facility] Opiates Negative Negative [facility] Oxycodone Negative Negative [facility] Phencyclidine Negative Negative [facility] Propoxyphene Negative Negative [facility] Specimen Urine Narrative Performed At Drug Name [facility] Cut-off Level Amphetamine (AMP/METH) 1000 ng/ml Barbiturates (LILLY) 200 ng/ml Benzodiazepines (JIM) 200 ng/ml Cannabinoids (THC) 50 ng/ml Cocaine (SANA) 300 ng/ml Methadone (MTD) 300 ng/ml Opiates (OPI) 300 ng/ml Oxycodone (OXY) 100 ng/ml Phencyclidine (PCP) 25 ng/ml Propoxyphene (PPX) 300 ng/ml Test results from this drug screen are to be used for medical purposes only. If positive, the sample is presumed to contain detectable drug concentrations equal to or greater than the cut-off concentrations listed above. A positive result indicates the presence of the drug or drug metabolite and does not indicate the level of intoxication or urinary concentration. Confirmation is available upon request to [facility]. Request for confirmation must be made within 5 days of the drug screen result. Performing Organization Address City/State/Zipcode Phone Number [facility] [address] [place] [address] [phone] THYROID STIMULATING HORMONE (02/15/2019 9:24 PM EDT)Only the most recent of5 resultswithin the time period is included. TSH 0.72 0.47 - 4.68 uIu/ml [facility] Specimen Blood Performing Organization Address [facility] Phone Number [facility] [address] [place] [address] SALICYLATE LEVEL (02/15/2019 9:24 PM EDT)Only the most recent of6 resultswithin the time period is included. Salicylate <1 (L) 2 - 20 mg/dl [facility] Specimen Blood Performing Organization Address [facility] Phone Number [facility] [address] [place] [address] [phone] COMPREHENSIVE METABOLIC PANEL (02/15/2019 9:24 PM EDT)Only the most recent of8 resultswithin the time period is included. Sodium 140 134 - 145 mmol/L [facility] Potassium 3.9 3.5 - 5.1 mmol/L [facility] Chloride 104 98 - 107 mmol/L [facility] CO2 27 22 - 30 mmol/L [facility] Calcium 9.7 8.3 - 10.1 mg/dl [facility] Albumin 4.3 3.5 - 5.0 g/dl [facility] BUN 14 9 - 20 mg/dl [facility] Creatinine 0.8 0.8 - 1.5 mg/dl [facility] Glucose 94 70 - 99 mg/dl [facility] Total Protein 7.4 6.3 - 8.2 g/dl [facility] Total Bilirubin 0.3 0.0 - 1.1 MG/DL [facility] AST 31 17 - 59 U/L [facility] ALT 20 (L) 21 - 72 U/L [facility] Alkaline 58 40 - 150 U/L [facility] Phosphatase [facility] eGFR >60 See Interpretation [facility] Comment: Below ml/min/1.73ml [facility] Estimated GFR Interpretation: Above 60ml/min/1.73m2 = Normal Renal Function 30-59 ml/min/1.73m2 = Stage 3 Chronic Kidney Disease 15-29 ml/min/1.73m2 = Stage 4 Chronic Kidney Disease Less than 15 ml/min/1.73m2 = Stage 5 Chronic Kidney Disease The GFR value is calculated using the Modification of Diet in Renal Disease ( MDRD) Study Equation which can be found at: https://www.kidney.org/content/rblq-zpcvo-ftvugcot BUN/Creatinine 18 6 - 22 RATIO [facility] Ratio [facility] Anion Gap 9 3 - 11 mmol/L [facility] A/G Ratio 1.4 0.8 - 2.0 ratio [facility] Specimen Blood Performing Organization Address [facility] Phone Number [facility] [address] [facility] [place] [address] ALCOHOL LEVEL, MEDICAL (02/15/2019 9:24 PM EDT)Only the most recent of7 resultswithin the time period is included. Blood Alcohol <10.00 0.00 - 10.00 [facility] MG/DL [facility] Alcohol % Comment: None None Detected % [facility] Detected [facility] Specimen Blood Performing Organization Address [facility] Phone Number [facility] [address] [place] [address] ACETAMINOPHEN LEVEL (02/15/2019 9:24 PM EDT)Only the most recent of6 resultswithin the time period is included. Acetaminophen <10.0 10 .0 - 30.0 ug/mL [facility] Specimen Blood Performing Organization Address [facility] Phone Number [facility] [address] [place] [address] CBC NO DIFFERENTIAL (02/15/2019 9:24 PM EDT)Only the most recent of4 resultswithin the time period is included. WBC Count 7.40Comment: 4.23 - 9.07 [facility] Methodology was K/uL [facility] changed 06/05/2018. Please note updated reference range and units. RBC Count 4.95 4.30 - 5.89 [facility] M/UL [facility] Hemoglobin 15.9 13.7 - 17.5 [facility] g/dL [facility] Hematocrit 45.5 40.1 - 51.0 % [facility] MCV 91.9 79.0 - 92.2 [facility] FL [facility] MCH 32.1 25.7 - 32.2 [facility] PG [facility] MCHC 34.9 32.3 - 36.5 [facility] g/dL [facility] Platelet Count 186 163 - 337 [facility] K/uL [facility] MPV 9.2 (L) 9.4 - 12.4 FL [facility] RDW 12.3 11.6 - 14.4 % [facility] Specimen Blood Performing Organization Address City/State/Zipcode Phone Number [facility] [address] [place] [address] XR RIBS UNILAT WITH PA CHEST MIN [...] by Gumaro Ramirez on 02/13/2019 9:14 PM XR ANKLE MIN 3 VIEWS LEFT (STANDARD) (2019 5:19 PM EDT) Specimen Impressions Performed At No acute findings. Urgency: Routine. This is a routine medical imaging report. Recommendation: No specific imaging recommendation. Signed by Gray Matta MD on 2019 5:30 PM Narrative Performed At Procedure(s): XR ANKLE MIN 3 VIEWS LEFT (STANDARD) Date of service: 2019 5:13 PM Provided clinical information: 29 years, Male, "injured ankle 5 days ago" Procedure and materials: Standard protocol. Comparison studies: 10/21/2011. Observations: 3 views of the left ankle demonstrate normal alignment. No acute fracture is evident. The talar dome appears smooth. Ankle mortise appears intact. Soft tissues are unremarkable. Procedure Note Interface, Rad Results - 2019 5:32 PM EDT Procedure(s): XR ANKLE MIN 3 VIEWS LEFT (STANDARD) Date of service: 2019 5:13 PM Provided clinical information: 29 years, Male, "injured ankle 5 days ago" Procedure and materials: Standard protocol. Comparison studies: 10/21/2011. Observations: 3 views of the left ankle demonstrate normal alignment. No acute fracture is evident. The talar dome appears smooth. Ankle mortise appears intact. Soft tissues are unremarkable. IMPRESSION No acute findings. Urgency: Routine. This is a routine medical imaging report. Recommendation: No specific imaging recommendation. Signed by Gray Matta MD on 2019 5:30 PM CBC WITH DIFFERENTIAL (12/30/2018 4:31 AM EDT)Only the most recent of4 resultswithin the time period is included. WBC Count 8.15 4.23 - 9.07 K/uL [facility] RBC Count 4.88 4.30 - 5.89 M/UL [facility] Hemoglobin 15.4 13.7 - 17.5 G/DL [facility] Hematocrit 44.4 40.1 - 51.0 % [facility] MCV 91.0 79.0 - 92.2 FL [facility] MCH 31.6 25.7 - 32.2 PG [facility] MCHC 34.7 32.3 - 36.5 g/dL [facility] Platelet Count 193 163 - 337 K/uL [facility] MPV 9.3 (L) 9.4 - 12.4 FL [facility] RDW 12.7 11.6 - 14.4 % [facility] Neutrophil % 58.0 34.0 - 67.9 % [facility] Lymphocyte % 31.3 21.8 - 53.1 % [facility] Monocyte % 8.7 5.3 - 12.2 % [facility] Eosinophil % 1.2 0.8 - 7.0 % [facility] Basophil % 0.6 0.2 - 1.2 % [facility] nRBC % 0.0 0.0 - 0.2 % [facility] Neutrophil # 4.72 1.78 - 5.38 K/UL [facility] Lymphocyte # 2.55 1.32 - 3.57 K/UL [facility] Monocyte # 0.71 0.30 - 0.82 K/UL [facility] Eosinophil # 0.10 0.04 - 0.54 K/UL [facility] Basophil # 0.05 0.01 - 0.08 K/UL [facility] Immature Gran % 0.2 0.0 - 0.4 % [facility] Immature Gran # 0.02 0.00 - 0.03 K/uL [facility] NRBC # 0.00 0.00 - 0.12 K/uL [facility] Specimen Blood Performing Organization Address City/State/Zipcode Phone Number [facility] [address] [place] [address] [phone] NT PROBNP (12/30/2018 4:31 AM EDT) NT PRO BNP 21 <125 pg/ml [facility] Comment: [facility] Recommended cut points for the diagnostic evaluation of heart failure patients with acute dyspnea* Ages (years) Optimal [place] (pg/ml) <50 450 50-75 900 >75 1800 *The [place] Journal of Cardiology NTproBNP results should be interpreted in the context of the overall picture. Serum concentrations of natriuretic peptides may be elevated in patients with acute myocardial infarction and renal insuffic iency. Certain drugs may alter results. Heterophilic antibodies are known to cause interference with immunoassays. Results which are inconsistent with clinical observation indicate a need for additional testing. NTproBNP testing performed on [employer]. Results will not correlate with other methodologies. Specimen Blood Performing Organization Address [facility] Phone Number [facility] [address] [place] [address] VALPROIC ACID (12/30/2018 4:31 AM EDT)Only the most recent of5 resultswithin the time period is included. Valproic Acid 29.5 (L) 50.0 - 120.0 UG/ML [facility] Specimen Blood Performing Organization Address [facility] Phone Number [facility] [address] [place] [address] TROPONIN (12/30/2018 4:31 AM EDT) Troponin <0.012 0.000 - 0.034 [facility] Comment: ng/ml GROUP LAB[facility]ATORY Negative less than or equal to 0.034 ng/ml Indeterminate 0.0351 - 0.119 ng/ml (Suggest Repeat in 4 Hours) Critical (AMI Cutoff) greater than or equal to 0.120 ng/ml Specimen Blood Performing Organization Address [facility] Phone Number [facility] [address] [place] [address] XR CHEST 2 VIEW PA AND LATERAL (STANDARD) (12/30/2018 4:13 AM EDT)Only the most recent of2 resultswithin the time period is included. Specimen Impressions Performed At 1. Normal chest. Signed by Gumaro Ramirez on 12/30/2018 4:16 AM Narrative Performed At Procedure: XR CHEST 2 VIEW PA AND LATERAL (STANDARD) Date of service: 12/30/2018 4:12 AM History: 28 years, Male, "pre-syncope" Comparison: 12/08/18 Findings: The cardiomediastinal silhouette is within normal limits. The lungs are clear. There is no pleural effusion or pneumothorax. The bones are unremarkable. Procedure Note Interface, Rad Results - 12/30/2018 4:19 AM EDT Procedure: XR CHEST 2 VIEW PA AND LATERAL (STANDARD) Date of service: 12/30/2018 4:12 AM History: 28 years, Male, "pre-syncope" Comparison: 12/08/18 Findings: The cardiomediastinal silhouette is within normal limits. The lungs are clear. There is no pleural effusion or pneumothorax. The bones are unremarkable. IMPRESSION 1. Normal chest. Signed by Gumaro Ramirez on 12/30/2018 4:16 AM CHEM 8 I-STAT (POCT) (12/19/2018 8:36 PM EDT) Sodium i-STAT 141 136 - 145 POINT OF CARE mmol/L TESTING Potassium i-STAT 3.8 3.5 - 5.1 POINT OF CARE mmol/L TESTING Chloride i-STAT 102 98 - 107 POINT OF CARE mmol/L TESTING CO2 i-STAT 24 21 - 32 [facility] Comment: mmol/L TESTING Performed at: [facility] POCT Jaren Hopson MD, Laboratory [place] [address] [address] Glucose i-STAT 85 70 - 99 mg/dl [facility] Comment: TESTING Adult Normal Range = 70-99 to 30 days Normal Range = 60-99 BUN i-STAT 17 7 - 18 mg/dl POINT OF CARE TESTING Creatinine i-STAT 0.8 0.6 - 1.3 POINT OF CARE mg/dl TESTING Ion Calcium i-STAT 5.10 4.65 - 5.28 POINT OF CARE mg/dL TESTING Hemoglobin i-STAT 15.0 13.0 - 18.0 POINT OF CARE G/DL TESTING Hematocrit i-STAT 44 35 - 47 %PCV POINT OF CARE TESTING Specimen Blood Performing Organization Address City/[facility] Phone Number POINT OF CARE TESTING URINE MICROSCOPIC WITH REFLEX CULTURE (12/17/2018 9:34 PM EDT)Only the most recent of2 resultswithin the time period is included. Urine Wbc 25-50 (A) 0 - 5 /HPF [facility] Urine Epithelial 2+ None Seen /HPF [facility] Urine Bacteria Few None Seen /HPF [facility] Urine Mucus Present (A) Negative [facility] Specimen Urine Performing Organization Address City/[facility] Phone Number [employer] [facility] [address] [place] [address] [phone] URINALYSIS (LAB) WITH REFLEX CULTURE (12/17/2018 9:34 PM EDT)Only the most recent of2 resultswithin the time period is included. Urine Color Yellow Yellow [facility] [employer] Urine Appearance Cloudy (A) Clear [facility] Urine Glucose Negative Negative mg/dl [facility] Urine Bilirubin Negative Negative [facility] Urine Ketones Negative Negative [facility] Urine Specific 1.028 1.005 - 1.030 [facility] Urine Blood Negative Negative [facility] Urine Ph 7.5 5.0 - 8.0 [facility] Urine Protein Trace (A) Negative mg/dl [facility] Urine Urobilinogen 0.2 0.2 - 1.0 [facility] E.U./DL [facility] Urine Nitrite Negative Negative [facility] Urine Leukocytes Moderate (A) Negative [facility] Specimen Urine Performing Organization Address City/[facility] Phone Number [employer] [facility] [address] [place] [address] URINE CULTURE (C&S) (12/17/2018 9:34 PM EDT)Only the most recent of2 resultswithin the time period is included. Urine Culture No growth of clinical [place] Specimen Urine Performing Organization Address [facility] Phone Number [employer] [facility] [address] [place] [address] IN PT/ED 12 LEAD EKG (12/08/2018 10:18 PM EDT)Only the most recent of2 resultswithin the time period is included. Ventricular Rate 65 BPM CARDIOLOGY DEPARTMENT Atrial rate 65 BPM CARDIOLOGY DEPARTMENT P-R Interval 152 ms CARDIOLOGY DEPARTMENT QRS Duration 84 ms CARDIOLOGY DEPARTMENT Q-T Interval 378 ms CARDIOLOGY DEPARTMENT QTC Calculation 393 ms CARDIOLOGY (Bezet) DEPARTMENT P [place] 72 degrees CARDIOLOGY DEPARTMENT R Henderson 72 degrees CARDIOLOGY DEPARTMENT T [place] 76 degrees CARDIOLOGY DEPARTMENT Diagnosis Line Sinus rhythm with marked sinus arrhythmia CARDIOLOGY Otherwise normal ECG DEPARTMENT When compared with ECG of 05-DEC-2018 02:06, (unconfirmed) No significant change was found Confirmed by JESSIE ABEBE MD ([id number]) ([id number]) on 12/21/2018 11:49:39 AM Specimen Performing Organization Address City/State/Zipcode Phone Number CARDIOLOGY DEPARTMENT PROLACTIN (12/05/2018 2:03 AM EDT) Prolactin 14.6 3.7 - 17.9 ng/ml [facility] Specimen Blood Performing Organization Address City/State/Zipcode Phone Number [facility] [address] [place] [address] CT CHEST ABDOMEN PELVIS ANGIOGRAPHY AORTA (11/24/2018 6:28 PM EDT) Specimen Impressions Performed At Normal CT angiography of the chest, abdomen and pelvis. Specifically, ascending aorta is normal. Bilateral L5 spondylolysis with minimal grade 1 spondylolisthesis. Urgency: Routine. This is a routine medical imaging report. Recommendation: No specific imaging recommendation. Signed by Dilshad Aguilar MD on 11/28/2018 10:06 AM Narrative Performed At Procedure(s): CT CHEST ABDOMEN PELVIS ANGIOGRAPHY AORTA Date of service: 11/24/2018 6:13 PM Provided clinical information: 28 years, Male, "history of marphans r/o aneurysm" Procedure and materials: CT angiography, chest abdomen and pelvis Contrast: Initial nonenhanced imaging shows no sign of intramural hematoma Comparison studies: None. Observations: Study is performed non-gated study. After initial nonenhanced imaging enhanced study is obtained through the chest abdomen and pelvis. There is no sign of aneurysm. Ascending aorta measures just 24 mm in maximum diameter. There is no evidence of dissection. Descending and abdominal aorta are normal. All of the branches are normal. 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 Axillary regions and chest wall are unremarkable. Thoracic inlet is normal. Mediastinum shows no adenopathy. Hilar regions are normal. No pleural or pericardial effusion. Lung parenchyma is unremarkable. Airways are normal. Arterial phase imaging of the abdomen and pelvis shows normal appearance of liver, spleen and pancreas kidneys are normal. Gastrointestinal tract is unremarkable. No ascites. No adenopathy. Retroperitoneum, mesentery and omentum are unremarkable. Inguinal regions are normal. There is a bilateral L5 spondylolysis with minimal grade 1 spondylolisthesis. Bones are otherwise unremarkable Procedure Note Interface, Rad Results - 11/28/2018 10:08 AM EDT Procedure(s): CT CHEST ABDOMEN PELVIS ANGIOGRAPHY AORTA Date of service: 11/24/2018 6:13 PM Provided clinical information: 28 years, Male, "history of marphans r/o aneurysm" Procedure and materials: CT angiography, chest abdomen and pelvis Contrast: Initial nonenhanced imaging shows no sign of intramural hematoma Comparison studies: None. Observations: Study is performed non-gated study. After initial nonenhanced imaging enhanced study is obtained through the chest abdomen and pelvis. There is no sign of aneurysm. Ascending aorta measures just 24 mm in maximum diameter. There is no evidence of dissection. Descending and abdominal aorta are normal. All of the branches are normal. 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 Axillary regions and chest wall are unremarkable. Thoracic inlet is normal. Mediastinum shows no adenopathy. Hilar regions are normal. No pleural or pericardial effusion. Lung parenchyma is unremarkable. Airways are normal. Arterial phase imaging of the abdomen and pelvis shows normal appearance of liver, spleen and pancreas kidneys are normal. Gastrointestinal tract is unremarkable. No ascites. No adenopathy. Retroperitoneum, mesentery and omentum are unremarkable. Inguinal regions are normal. There is a bilateral L5 spondylolysis with minimal grade 1 spondylolisthesis. Bones are otherwise unremarkable IMPRESSION Normal CT angiography of the chest, abdomen and pelvis. Specifically, ascending aorta is normal. Bilateral L5 spondylolysis with minimal grade 1 spondylolisthesis. Urgency: Routine. This is a routine medical imaging report. Recommendation: No specific imaging recommendation. Signed by Dilshad Aguilar MD on 11/28/2018 10:06 AM from Last 3 Months Insurance Payer Benefit Plan / Subscriber ID Effective Dates Phone Address Type Group [place] xxxxxxxx 2016-Present Medicaid [place] Guarantor Name Account Type Relation to Date of Phone Billing Patient Address Rob Flor Personal/Family Self 1990 [address] [place] [address] Advance Directives Code Status Date Activated Date [...]
--- OUTSIDE RECORDS SUMMARY | 2019-03-07 18:13 | XMS REPORT | Summary of Care ---
:1990 Demographics Address [address] [place] [address] Home Phone Mobile Phone Email Address Preferred Language Cuban Marital Status Not or Jainism Affiliation Unknown Race White Ethnic Group Not or Author Organization [facility] Address [address] [address] Care Team Providers Name Role Phone Lucia Ernandez MD Primary Care Provider Reason for Visit Reason Comments Seizures Encounter Details Date Type Department Care Team Description 02/25/2019 - Emergency [facility] Emergency Department Romulo Bynum, DO [address] [address] [phone] Emergency 02/26/2019 1 Oleg Triana MD [address] [place] [address] [phone] [address] [address] Allergies Active Allergy Reactions Severity Noted Date Comments Augmentin Hives 09/17/2007 Cefaclor Monohydrate Hives 09/17/2007 Cefuroxime Hives 09/17/2007 Morphine Hives 02/26/2008 Pertussis Immune Globulin Unknown Reaction 09/03/2013 Tetanus Toxoid Swelling 02/26/2008 Ziprasidone Other 02/17/2010 Made b/p go up and come down Geodon documented as of this encounter (statuses as of 02/27/2019) Medications Medication Sig Dispensed Refills Start Date End Date Status TRAZODONE HCL PO Take 25 mg by 0 Active mouth EVERY BEDTIME. Cariprazine HCl Take 3 mg by 30 Cap 0 02/19/2019 Active (VRAYLAR) 3 MG Oral Cap mouth DAILY. divalproex (DEPAKOTE Take 2 Tabs by 120 Tab 3 02/25/2019 Active ER) 500 MG Oral TABLET mouth TWICE SR 24 HR DAILY. documented as of this encounter (statuses as of 02/27/2019) Active Problems Problem Noted Date Recurrent seizures 12/30/2018 Chest pain 11/03/2018 Bipolar 2 disorder 09/26/2018 Overview: -continue home dose of lithium and vraylar -[place] level pending Personality disorder, unspecified 05/05/2018 Overview: [...] neurology -Patient to be placed on telemetry -[place] level pending -seizure precaution ADHD (attention deficit hyperactivity disorder) 09/17/2007 Overview: -Stable documented as of this encounter (statuses as of 02/27/2019) Immunizations Name Administration Dates Next Due DTAP [...] Sign Reading Time Taken Comments Blood Pressure 110/62 02/26/2019 12:45 AM EDT Pulse 58 02/26/2019 12:45 AM EDT Temperature 37.1 02/26/2019 12:45 AM EDT C (98.7 F) Respiratory Rate 18 02/26/2019 12:45 AM EDT Oxygen Saturation 98% 02/26/2019 12:45 AM EDT Inhaled Oxygen Concentration - - Weight - - Height - - Body Mass Index - - documented in this encounter Discharge Instructions Romulo Harvey DO - 02/25/2019Take medication as directed Avoid smoking marijuana Avoid drinking alcohol AttachmentsThe following attachments cannot be sent through Care Everywhere.EPILEPSY (AFTERCARE(R) INSTRUCTIONS(ER/ED)) ([place])documented in this encounter Plan of Treatment Date Type Specialty Care Team Description 03/02/2019 Office Visit Family Practice Lucia Ernandez MD [address] [place] [address] [place] [address] 04/07/2019 [facility] [address] 11/18/2019 Office Visit Cardiology Kitty Iglesias CRNP [address] [address] [phone] Health Maintenance Due Date Last Done Comments [...] control of your depression. Work with your Tax Senior Associate General No Rajni Nassar RN Note: This is an individualized treatment (frequent ED use) goal for Rob Flor : Please work with your Tax Senior Associate, who will assist you in meeting your [...] encounter Procedures Procedure Name Priority Date/Time Associated Comments Diagnosis URINE DRUG SCREEN STAT 02/25/2019 11:30 Results for this PM EDT procedure are in the results section. CBC WITH DIFFERENTIAL STAT 02/25/2019 9:17 Results for this PM EDT procedure are in the results section. VALPROIC ACID STAT 02/25/2019 9:17 Results for this PM EDT procedure are in the results section. THYROID STIMULATING STAT 02/25/2019 9:17 Results for this HORMONE PM EDT procedure are in the results section. MAGNESIUM LEVEL STAT 02/25/2019 9:17 Results for this PM EDT procedure are in the results section. COMPREHENSIVE STAT 02/25/2019 9:17 Results for this METABOLIC PANEL PM EDT procedure are in the results section. ALCOHOL LEVEL, MEDICAL STAT 02/25/2019 9:17 Results for this PM EDT procedure are in the results section. documented in this encounter Results URINE DRUG SCREEN (02/25/2019 11:30 PM EDT) Amphetamines Negative Negative [facility] Barbiturates Negative Negative [facility] Benzodiazepine Negative Negative [facility] Cannabinoids Negative Negative [facility] Cocaine Negative Negative [facility] Methadone Negative Negative [facility] Opiates Negative Negative [facility] Oxycodone Negative Negative [facility] Phencyclidine Negative Negative [facility] Propoxyphene Negative Negative [facility] Specimen Urine - Urine specimen obtained by clean catch procedure (specimen) Narrative Performed At Drug Name [facility] Cut-off Level Amphetamine (AMP/METH) 1000 [...] concentration. Confirmation is available upon request to [facility]. Request for confirmation must be made within 5 days of the drug screen result. Performing Organization Address [facility] Phone Number [facility] [address] [address] VALPROIC ACID (02/25/2019 9:17 PM EDT) Valproic Acid 88.7 50.0 - 120.0 UG/ML [facility] Specimen Blood - Blood specimen (specimen) Performing Organization Address [facility] Number [facility] [address] [address] MAGNESIUM LEVEL (02/25/2019 9:17 PM EDT) Magnesium 1.8 1.6 - 2.3 MG/DL [facility] Specimen Blood - Blood specimen (specimen) Performing Organization Address [facility] Number [facility] [address] [place] [address] [phone] THYROID STIMULATING HORMONE (02/25/2019 9:17 PM EDT) TSH 1.39 0.47 - 4.68 uIu/ml [facility] Specimen Blood - Blood specimen (specimen) Performing Organization Address [facility] Number [facility] [address] [place] [address] [phone] ALCOHOL LEVEL, MEDICAL (02/25/2019 9:17 PM EDT) Blood Alcohol <10.00 0.00 - 10.00 [facility] MG/DL [email or web address] LAB[facility]ATORY Alcohol % Comment: None [facility] Specimen Blood - Blood specimen (specimen) Performing Organization Address [facility] Phone Number [facility] [address] [place] [address] COMPREHENSIVE METABOLIC PANEL (02/25/2019 9:17 PM EDT) Sodium 143 134 - 145 mmol/L [facility] Potassium 4.2 3.5 - 5.1 mmol/L [facility] Chloride 104 98 - 107 mmol/L [facility] CO2 27 22 - 30 mmol/L [facility] Calcium 10.0 8.3 - 10.1 mg/dl [facility] Albumin 4.5 3.5 - 5.0 g/dl [facility] BUN 18 9 - 20 mg/dl [facility] Creatinine 0.8 0.8 - 1.5 mg/dl [facility] Glucose 87 70 - 99 mg/dl [facility] Total Protein 7.6 6.3 - 8.2 g/dl [facility] Total Bilirubin 0.4 0.0 - 1.1 MG/DL [facility] AST 28 17 - 59 U/L [facility] ALT 21 21 - 72 U/L [facility] Alkaline 63 40 - 150 U/L [facility] eGFR >60 See Interpretation [facility] Comment: Below ml/min/1.73ml GROUP Estimated GFR Interpretation: Sq LABORATORY Above 60ml/min/1.73m2 = Normal Renal Function 30-59 ml/min/1.73m2 = Stage 3 Chronic Kidney Disease 15-29 ml/min/1.73m2 = Stage 4 Chronic Kidney Disease Less than 15 ml/min/1.73m2 = Stage 5 Chronic Kidney Disease The GFR value is calculated using the Modification of Diet in Renal Disease ( MDRD) Study Equation which can be found at: https://www.kidney.org/content/ysvr-xxhbb-higgvpve BUN/Creatinine 23 (H) 6 - 22 [facility]ATORY Anion Gap 12 (H) 3 - 11 mmol/L [facility] A/G Ratio 1.5 0.8 - 2.0 ratio [facility] Specimen Blood - Blood specimen (specimen) Performing Organization Address City/State/Zipcode Phone Number [facility] [address] [place] [address] CBC WITH DIFFERENTIAL (02/25/2019 9:17 PM EDT) WBC Count 8.31 4.23 - 9.07 K/uL [facility] RBC Count 4.97 4.30 - 5.89 M/UL [facility] Hemoglobin 16.3 13.7 - 17.5 g/dL [facility] Hematocrit 45.7 40.1 - 51.0 % [facility] MCV 92.0 79.0 - 92.2 FL [facility] MCH 32.8 (H) 25.7 - 32.2 PG [facility] MCHC 35.7 32.3 - 36.5 g/dL [facility] Platelet Count 187 163 - 337 K/uL [facility] MPV 9.7 9.4 - 12.4 FL [facility] RDW 12.3 11.6 - 14.4 % [facility] Neutrophil % 51.8 34.0 - 67.9 % [facility] Lymphocyte % 37.9 21.8 - 53.1 % [facility] Monocyte % 9.0 5.3 - 12.2 % [facility] Eosinophil % 0.7 (L) 0.8 - 7.0 % [facility] Basophil % 0.4 0.2 - 1.2 % [facility] nRBC % 0.0 0.0 - 0.2 % [facility] Neutrophil # 4.30 1.78 - 5.38 K/UL [facility] Lymphocyte # 3.15 1.32 - 3.57 K/UL [facility] Monocyte # 0.75 0.30 - 0.82 K/UL [facility] Eosinophil # 0.06 0.04 - 0.54 K/UL [facility] Basophil # 0.03 0.01 - 0.08 K/UL [facility] Immature Gran % 0.2 0.0 - 0.4 % [facility] Immature Gran # 0.02 0.00 - 0.03 K/uL [facility] NRBC # 0.00 0.00 - 0.12 K/uL [facility] Specimen Blood - Blood specimen (specimen) Performing Organization Address City/State/Zipcode Phone Number [facility] [address] [address] documented in this encounter Visit Diagnoses Diagnosis Seizure disorder (HCC) - Primary Unspecified epilepsy without mention of intractable epilepsy documented in this encounter Administered Medications Medication Order MAR Action Action Date Dose Rate Site normal saline bolus 1,000 mL New Bag 02/25/2019 9:40 PM EDT 1,000 mL 1,000 mL, Intravenous, BOLUS, 1 dose, 02/25/19 at 2210 documented in this encounter Insurance Payer Benefit Plan / Subscriber ID Effective Dates Phone Address Type Group [place] xxxxxxxx 2016-Present [place] Guarantor Name Account Type Relation to Date of Phone Billing Patient Address FlorRob Dheeraj Personal/Family 1990 06/04 [address] [address] documented as of this encounter Advance Directives [...]
--- OUTSIDE RECORDS SUMMARY | 2019-03-07 18:14 | XMS REPORT | Summary of Care ---
:1990 Demographics Address [address] [place] [address] Home Phone Mobile Phone Email Address Preferred Language [place] Citizen Marital Status Not or Rastafarian Affiliation Unknown Race White Ethnic Group Not or Author Organization [facility] Address [address] [address] Care Team Providers Name Role Phone Lucia Ernandez MD Primary Care Provider Reason for Visit Reason Comments Seizures Encounter Details Date Type Department Care Team Description 02/05/2019 Emergency [facility] Emergency Department Emergency [address] [id number] Allergies Active Allergy Reactions Severity Noted Date Comments Augmentin Hives 09/17/2007 Cefaclor Monohydrate Hives 09/17/2007 Cefuroxime Hives 09/17/2007 Morphine Hives 02/26/2008 Pertussis Immune Globulin Unknown Reaction 09/03/2013 Tetanus Toxoid Swelling 02/26/2008 Ziprasidone Other 02/17/2010 Made b/p go up and come down Geodon documented as of this encounter (statuses as of 02/06/2019) Medications Medication Sig Dispensed Refills Start Date [...] for total of 750 mg twice daily documented as of this encounter (statuses as of 02/06/2019) Active Problems Problem Noted Date Recurrent seizures 12/30/2018 Chest pain 11/03/2018 Bipolar 2 disorder 09/26/2018 Overview: -continue home dose of lithium and vraylar -[place] level pending Personality disorder, unspecified 05/05/2018 Overview: [...] neurology -Patient to be placed on telemetry -[place] level pending -seizure precaution ADHD (attention deficit hyperactivity disorder) 09/17/2007 Overview: -Stable documented as of this encounter (statuses as of 02/06/2019) Immunizations Name Administration Dates Next Due DTAP [...] Sign Reading Time Taken Comments Blood Pressure 103/65 02/04/2019 9:37 PM EDT Pulse 58 02/04/2019 9:37 PM EDT Temperature 36.9 02/04/2019 9:37 PM EDT C (98.4 F) Respiratory Rate 18 02/04/2019 9:37 PM EDT Oxygen Saturation 98% 02/04/2019 9:37 PM EDT Inhaled Oxygen Concentration - - Weight - - Height - - Body Mass Index - - documented in this encounter Plan of Treatment Date Type Specialty Care Team Description 02/06/2019 Office Visit Family Practice Lucia Ernandez MD [facility] [place] [id number] 02/10/2019 Office Visit Neurology Roselia Man PAVilmaC [address] [address] 11/18/2019 Office Visit Cardiology Kitty Iglesias CRNP [address] [address] Health Maintenance Due Date Last Done [...] an individualized treatment (depression) goal for Rob Esqueda Chacho: Displayed above is your goal for a depression screening (PHQ-9) score that would indicate good control of your depression. Work with your Varnish Melter General No Rajni Nassar RN Note: This is an individualized treatment (frequent ED use) goal for Rob Flor : Please work with your Varnish Melter, who will assist you in meeting your [...] Results Not on filedocumented in this encounter Insurance Payer Benefit Plan / Subscriber ID Effective Dates Phone Address Type Group [place] xxxxxxxx 2016-Present [place] Guarantor Name Account Type Relation to Date of Phone Billing Patient Address Rob Flor Personal/Family 1990 [address] (Home) [place] [address] documented as of this encounter Advance Directives [...]
--- OUTSIDE RECORDS SUMMARY | 2019-03-07 18:14 | XMS REPORT | Summary of Care ---
:1990 Demographics Address [address] [place] [address] Home Phone Mobile Phone Email Address Preferred Language Egyptian Marital Status Not or Sabianist Affiliation Unknown Race White Ethnic Group Not or Author Organization [facility] Address [address] [address] Care Team Providers Name Role Phone Lucia Ernandez MD Primary Care Provider Reason for Referral (Emergency) Status Reason Specialty Diagnoses / Procedures Referred By Contact Referred To Contact Tanya Lopez PA-C [address] [address] Scheduling Instructions Reason for Request: History & Physical Patient Background: Rob Flor is a 29-y.o. male Active Problems: * No active hospital problems. * Reason for Visit Reason Comments Mental Health Problem Encounter Details Date Type Department Care Team Description 02/08/2019 - 02/09/2019 Emergency [facility] Emergency Department Emergency [address] [id number] Allergies Active Allergy Reactions Severity Noted Date Comments Augmentin Hives 09/17/2007 Cefaclor Monohydrate Hives 09/17/2007 Cefuroxime Hives 09/17/2007 Morphine Hives 02/26/2008 Pertussis Immune Globulin Unknown Reaction 09/03/2013 Tetanus Toxoid Swelling 02/26/2008 Ziprasidone Other 02/17/2010 Made b/p go up and come down Geodon documented as of this encounter (statuses as of 02/10/2019) Medications Medication Sig Dispensed Refills Start Date [...] as of this encounter (statuses as of 02/10/2019) Active Problems Problem Noted Date Recurrent seizures 12/30/2018 Chest pain 11/03/2018 Bipolar 2 disorder 09/26/2018 Overview: -continue home dose of lithium and vraylar -[place] level pending Personality disorder, unspecified 05/05/2018 Overview: [...] neurology -Patient to be placed on telemetry -[place] level pending -seizure precaution ADHD (attention deficit hyperactivity disorder) 09/17/2007 Overview: -Stable documented as of this encounter (statuses as of 02/10/2019) Immunizations Name Administration Dates Next Due DTAP [...] Sign Reading Time Taken Comments Blood Pressure 106/64 02/09/2019 2:10 AM EDT Pulse 72 02/09/2019 2:10 AM EDT Temperature 36.7 02/09/2019 2:10 AM EDT C (98 F) Respiratory Rate 16 02/09/2019 2:10 AM EDT Oxygen Saturation 96% 02/09/2019 2:10 AM EDT Inhaled Oxygen Concentration - - Weight 68.9 kg (152 lb) 02/08/2019 8:44 PM EDT Height 193 cm (6' 4") 02/08/2019 8:44 PM EDT Body Mass Index 18.5 02/08/2019 8:44 PM EDT documented in this encounter Discharge Instructions Tanya Bryan PA-C - 02/09/2019 Psychiatric Discharge and Referral Plan 02/09/2019 Rob Flor [address] [facility] [id number] ([place]) Recommendations: Call [facility] and schedule an intake for counseling ([phone]). Contact you claim clerk. Call your PCP and let them know that you were seen in the ER. Use coping skills when feeling upset (deep breathing or finding an activity that you find calming) Patient Education Relaxation Techniques About this topic Stress is a feeling that all people will have. You may have stress from any kind of mental or emotional pressure. You may feel overwhelmed. Many things can lead to feelings of stress, like starting a new job or going on vacation. A sudden loss or very happy time can also cause stress. People respond to stress in many ways. You may feel worried or have problems sleeping. Stress may cause you to changehow you do things. It may cause you to have a low mood or feel angry. Stress is a part of life. It is not an illness. But, stress may lead to health problems if it is notmanaged the right way. There are many ways to relieve stress. One of them is through relaxation techniques. These may help you become calmer. They can also help you deal with strong emotions or tough situations. General Here are some ways to help relax your mind and body. Deep breathing ? Breathe in slowly through your nose. Hold your breath for about 3 seconds. Then, breathe slowly out your mouth. It may help to close your eyes and listen to your breathing. Think about your belly going up and down with each breath. Guided visualization ? Close your eyes and picture a safe, peaceful scene. Choose a place special to you like the ocean, mountain, ly, or somewhere in nature. Think about the details and what your senses notice in your scene. What are the smells, colors, temperature, sensations, and sounds found in the place being pictured. Progressive relaxation ? Sit or lie quietly. Start by making a group of muscles tense or tight and then relax them. Tense your muscles for at least 5 seconds and then relax for 30 seconds, and repeat. Then, move to another group. You may want to start at your feet and work towards your head. Laughter ? Laughing helps lower stress. Try watching a comedy on television. Tell funny storieswith friends. Share jokes or funny books. Go to a comedy club or seek out funny people to be with. Music ? Listening to soft or mellow music may help soothe your mind. Also, try singing or playing an instrument. Massage ? Rub or knead muscles to ease tension. This can lead to a more relaxed body and mind. Meditation ? You can meditate while doing many activities. The goal is to clear your mind. Manypeople have a sense of calm when they walk or run. Others feel this when they knit or do needlework.Still others feel this when just sitting quietly. Take a 10-second break ? You may feel very stressed but not able to leave where you are. If so,close your eyes and breathe deeply for 10 seconds. Yoga or marla chi ? These activities use a series of slow body movements together with deep breathing. They lower stress and anxiety. They may also help your flexibility, balance, and strength. Mindfulness ? Keeping your thoughts focused on what is here and now. What will the results be? When you have lower stress levels, you may sleep better. You may also have better health. You may feel more relaxed. Some people have better balance between work and family life. You may also have better relationships with family and friends when your stress level is lower. When you relax, you may: Have changes to your body like slower heart rate or lower blood pressure Release fewer stress hormones Have better blood flow to your muscles Be in a better mood and be able to concentrate more Be less tired Feel more confident and not as easily frustrated What lifestyle changes are needed? Know that it is OK to say no when asked to do something. Do not try to do everything. Drink no more than 3 caffeine drinks a day. Too much caffeine can cause anxiety. It may also keep you awake at night. Get 6 to 8 hours of sleep a night. Sleep is important for good mental health. Talk to your family or friends when you feel overwhelmed or stressed. This may help others findout what you need and give you support. Think about working with a mental health professional if anxiety or stress continues to cause problems in your daily life. You may need to practice these relaxation techniques to find the one that works best for you. Be patient with yourself. Where can I learn more? National Center for Complementary and Alternative Medicine http://nccam.nih.gov/health/stress/relaxation.htm NHS Choices http://www.nhs.uk/Conditions/bqeojc-drbrfiz-hkidwmidgm/Pages/ways-relieve- stress.aspx Last Reviewed Date 2016-06-13 Consumer Information Use and Disclaimer This information is not specific medical advice and does not replace information you receive from your health care provider. This is only a brief summary of general information. It does NOT include allinformation about conditions, illnesses, injuries, tests, procedures, treatments, therapies, discharge instructions or life-style choices that may apply to you. You must talk with your health care provider for complete information about your health and treatment options. This information should not beused to decide whether or not to accept your health care providers advice, instructions or recommendations. Only your health care provider has the knowledge and training to provide advice that isright for you. Copyright Copyright 2018 [employer] and its affiliates and/or licensors. All rights reserved. . Local Mental Health Hotline Numbers [phone] (24 hours) [phone] (24 hours) [phone] (24 hours) [facility] [phone] (Help Line) [phone] (Help Line) [phone] (Help Line) [facility] [phone] (Help Line) [facility] [phone] (Business Hrs) [phone] (After Hours) [place] [facility] [phone] (Business Hrs) [phone] (Command Center - will page manager installationcall center rn) [facility] Child Hotline [phone] [facility] [phone] (24 hours) [facility] [phone] (24 hours) [phone] (24 hours) [facility] [phone] (Business Hrs) [phone] (After Hours) [facility] [phone] (Business Hrs) [phone] (Agency Sales Development Associate's Dept. After Hours) [facility] [phone] (24 Hours) [facility] Child Hotline [phone] >>>>>>> [facility] MENTAL HEALTH HOTLINE: [phone] (0038 ) <<<<<<< ~~~~~ PLEASE CALL 911 FOR ANYTHING LIFE THREATENING ~~~~~ documented in this encounter Plan of Treatment Date Type Specialty Care Team Description 02/10/2019 Office Visit Neurology Roselia Man PA-C [address] [address] 11/18/2019 Office Visit [...] Progress Depression Depression No pablo Nassar (PHQ-9) MALIDNA [place] total score < 5 Note: This is an individualized treatment (depression) goal for Rob Flor: Displayed above is your goal for a depression screening (PHQ-9) score that would indicate good control of your depression. Work with your Melting Furnace Skimmer General No Rajni Nassar RN Note: This is an individualized treatment (frequent ED use) goal for Rob Flor : Please work with your Melting Furnace Skimmer, who will assist you in meeting your goals of care. Keep a regular sleep schedule Lifestyle No Rajni Nassar RN Note: This is an individualized lifestyle goal for Rob Flor: Please maintain a regular sleep schedule. This may help with some symptoms of depression. Regular appointments with primary care provider Lifestyle Rajni Franco , MALINDA (PCP) Note: This is an individualized lifestyle goal for Rob Flor: Please schedule regular visits with your primary care provider (PCP). Care provided in your PCP's office can help reduce your need for additional trips to the Emergency Room. Take all prescribed medications as directed Self-management No Rajni Nsasar MALINDA Note: This is an individualized self-management goal [...] Associated Comments Diagnosis URINE DRUG SCREEN STAT 02/08/2019 9:18 Results [...] results section. documented in this encounter Results CBC NO DIFFERENTIAL (02/08/2019 9:18 PM EDT) [facility] Signature WBC Count 9.06Comment: 4.23 - 9.07 [facility] Methodology was K/uL [facility] changed 06/05/2018. Please note updated reference range and units. RBC Count 4.83 4.30 - 5.89 [facility] M/UL [facility] Hemoglobin 15.8 13.7 - 17.5 [facility] g/dL [facility] Hematocrit 44.6 40.1 - 51.0 % [facility] MCV 92.3 (H) 79.0 - 92.2 [facility] FL [facility] MCH 32.7 (H) 25.7 - 32.2 [facility] PG [facility] MCHC 35.4 32.3 - 36.5 [facility] g/dL [facility] Platelet Count 187 163 - 337 [facility] K/uL [facility] MPV 9.4 9.4 - 12.4 FL [facility] RDW 12.6 11.6 - 14.4 % [facility] Specimen Blood Performing Organization Address [facility] [address]/[facility] Phone Number [facility] [address] [place] [address] ACETAMINOPHEN LEVEL (02/08/2019 9:18 PM EDT) Acetaminophen <10.0 10 .0 - 30.0 ug/mL [facility] Specimen Blood Performing Organization Address [facility] [address]/[facility] Phone Number [facility] [address] [address] SALICYLATE LEVEL (02/08/2019 9:18 PM EDT) Salicylate <1 (L) 2 - 20 mg/dl [facility] Specimen Blood Performing Organization Address [facility] [address]/[facility] Phone Number [facility] [address] [place] [address] ALCOHOL LEVEL, MEDICAL (02/08/2019 9:18 PM EDT) Blood Alcohol <10.00 0.00 - 10.00 [facility] MG/DL [facility] Alcohol % Comment: None None Detected % [facility] Detected [facility] Specimen Blood Performing Organization Address [facility] [address]/[facility] Phone Number [facility] [address] [place] [address] URINE DRUG SCREEN (02/08/2019 9:18 PM EDT) Amphetamines Negative Negative [facility] Barbiturates Negative Negative [facility] Benzodiazepine Negative Negative [facility] Cannabinoids Negative Negative [facility] Cocaine Negative Negative [facility] Methadone Negative Negative [facility] Opiates Negative Negative [facility] Oxycodone Negative Negative [facility] Phencyclidine Negative Negative [facility] Propoxyphene Negative Negative [facility] Specimen Urine Narrative Performed At Drug Name [facility] Cut-off Level Amphetamine (AMP/METH) 1000 ng/ml [...] concentration. Confirmation is available upon request to [employer]. Request for confirmation must be made within 5 days of the drug screen result. Performing Organization Address City/[facility] [address]/[facility] Phone Number [facility] [address] [place] [address] THYROID STIMULATING HORMONE (02/08/2019 9:18 PM EDT) TSH 1.19 0.47 - 4.68 uIu/ml [facility] Specimen Blood Performing Organization Address [facility] [address]/[facility] Phone Number [facility] [address] [place] [address] COMPREHENSIVE METABOLIC PANEL (02/08/2019 9:18 PM EDT) Sodium 142 134 - 145 mmol/L [facility] Potassium 3.6 3.5 - 5.1 mmol/L [facility] Chloride 104 98 - 107 mmol/L [facility] CO2 28 22 - 30 mmol/L [facility] Calcium 10.1 8.3 - 10.1 mg/dl [facility] Albumin 4.5 3.5 - 5.0 g/dl [facility] BUN 16 9 - 20 mg/dl [facility] Creatinine 0.8 0.8 - 1.5 mg/dl [facility] Glucose 89 70 - 99 mg/dl [facility] Total Protein 7.4 6.3 - 8.2 g/dl [facility] Total Bilirubin 0.3 0.0 - 1.1 MG/DL [facility] AST 32 17 - 59 U/L [facility] ALT 29 21 - 72 U/L [facility] Alkaline 63 40 - 150 U/L [facility] Phosphatase [facility] eGFR >60 See Interpretation [facility] Comment: Below ml/min/1.73ml [facility] Estimated GFR Interpretation: Above 60ml/min/1.73m2 = Normal Renal Function 30-59 ml/min/1.73m2 = Stage 3 Chronic Kidney Disease 15-29 ml/min/1.73m2 = Stage 4 Chronic Kidney Disease Less than 15 ml/min/1.73m2 = Stage 5 Chronic Kidney Disease The GFR value is calculated using the Modification of Diet in Renal Disease ( MDRD) Study Equation which can be found at: https://www.kidney.org/content/prbn-vlkyo-ztarrtob BUN/Creatinine 20 6 - 22 RATIO [facility] Anion Gap 10 3 - 11 mmol/L [facility] A/G Ratio 1.6 0.8 - 2.0 ratio [facility] Specimen Blood Performing Organization Address City/State/[facility] Phone Number [facility] [address] [address] documented in this encounter Insurance Payer Benefit Plan / Subscriber ID Effective Dates Phone Address Type Group [place] xxxxxxxx 2016-Present Medicaid [place] documented as of this encounter Advance Directives [...]
--- OUTSIDE RECORDS SUMMARY | 2019-03-07 18:14 | XMS REPORT | Summary of Care ---
:1990 Demographics Address [address] [place] [address] Home Phone Mobile Phone Email Address Preferred Language Slovenian Marital Status Not or Faith Affiliation Unknown Race White Ethnic Group Not or Author Organization [facility] Address [address] [address] Care Team Providers Name Role Phone Lucia Ernandez MD Primary Care Provider Reason for Visit Reason Comments Other alcohol intoxication Dizziness Encounter Details Date Type Department Care Team Description 01/10/2019 Emergency [facility] Emergency Department Cortney Wagner, Emergency [address] [address] 1 [address] [place] [phone] [place] [address] Allergies Active Allergy Reactions Severity Noted Date Comments Augmentin Hives 09/17/2007 Cefaclor Monohydrate Hives 09/17/2007 Cefuroxime Hives 09/17/2007 Morphine Hives 02/26/2008 Pertussis Immune Globulin Unknown Reaction 09/03/2013 Tetanus Toxoid Swelling 02/26/2008 Ziprasidone Other 02/17/2010 Made b/p go up and come down Geodon documented as of this encounter (statuses as of 01/11/2019) Medications Medication Sig Dispensed Refills Start Date [...] as of this encounter (statuses as of 01/11/2019) Active Problems Problem Noted Date Recurrent seizures 12/30/2018 Chest pain 11/03/2018 Bipolar 2 disorder 09/26/2018 Overview: -continue home dose of lithium and vraylar -[place] level pending Personality disorder, unspecified 05/05/2018 Overview: [...] neurology -Patient to be placed on telemetry -[place] level pending -seizure precaution ADHD (attention deficit hyperactivity disorder) 09/17/2007 Overview: -Stable documented as of this encounter (statuses as of 01/11/2019) Immunizations Name Administration Dates Next Due DTAP [...] Sign Reading Time Taken Comments Blood Pressure 102/57 01/10/2019 6:45 AM EDT Pulse 66 01/10/2019 6:45 AM EDT Temperature 36.6 01/10/2019 2:42 AM EDT C (97.9 F) Respiratory Rate 16 01/10/2019 6:45 AM EDT Oxygen Saturation 97% 01/10/2019 6:45 AM EDT Inhaled Oxygen Concentration - - Weight - - Height - - Body Mass Index - - documented in this encounter Discharge Instructions AttachmentsThe following attachments cannot be sent through Care Everywhere.VERTIGO (DISCHARGE CARE) (SERBIAN)documented in this encounter Plan of Treatment Date Type Specialty Care Team Description 02/06/2019 Office Visit Family Practice Lucia Ernandez MD [facility] S [facility] [place] [address] 02/10/2019 Office Visit Neurology Roselia Man PAVilmaC One [place] [address] 11/18/2019 Office Visit Cardiology Kitty Iglesias CRNP [address] [place] [address] [phone] Name Type Priority Associated Diagnoses Date/Time INPT/ED 12 LEAD EKG EKG STAT 01/10/2019 5:28 AM EDT Health Maintenance Due Date Last Done Comments [...] control of your depression. Work with your Financial Institution President General No Rajni Nassar RN Note: This is an individualized treatment (frequent ED use) goal for Rob Flor : Please work with your Financial Institution President, who will assist you in meeting your [...] Procedure Name Priority Date/Time Associated Diagnosis Comments ALCOHOL LEVEL, STAT 01/10/2019 5:39 AM Results for this MEDICAL EDT procedure are in the results section. IN PT/ED 12 LEAD STAT 01/10/2019 5:28 AM EKG EDT documented in this encounter Results ALCOHOL LEVEL, MEDICAL (01/10/2019 5:39 AM EDT) Blood Alcohol <10.00 0.00 - 10.00 [facility]DL [facility] Alcohol % Comment: None None Detected % [facility] Detected [facility] Specimen Blood Performing Organization Address City/State/Zipcode Phone Number [facility] [address] [place] [address] documented in this encounter Visit Diagnoses Diagnosis Dizziness - Primary Dizziness and giddiness documented in this encounter Administered Medications Medication Order MAR Action Action Date Dose Rate Site normal saline bolus 1,000 mL New Bag 01/10/2019 5:41 AM EDT 1,000 mL 1,000 mL, Intravenous, BOLUS, 1 dose, 01/10/19 at 0620 documented in this encounter Insurance Payer Benefit Plan / Subscriber ID Effective Dates Phone Address Type Group MEDICAID [facility] xxxxxxxx 2016-Present Medicaid [place] MEDICAID Guarantor Name Account Type Relation to Date of Phone Billing Patient Address Rob Flor Personal/Family 1990 [address] [place] (Home) [place] [address] documented as of this encounter Advance Directives [...]
--- OUTSIDE RECORDS SUMMARY | 2019-03-07 18:14 | XMS REPORT | Summary of Care ---
:1990 Demographics Address [address] [place] [address] Home Phone Mobile Phone Email Address Preferred Language Pitcairn Islander Marital Status Not or Rastafari Affiliation Unknown Race White Ethnic Group Not or Author Organization [facility] Address 1 [facility] [place] [address] Care Team Providers Name Role Phone Lucia Ernandez MD Primary Care Provider Reason for Visit Reason Comments Ankle Injury Encounter Details Date Type Department Care Team Description 2019 Emergency [facility] Emergency Department Josue Bar MD Emergency [address] [facility] [place] [address] [place] [address] [phone] Allergies Active Allergy Reactions Severity Noted Date Comments Augmentin Hives 09/17/2007 Cefaclor Monohydrate Hives 09/17/2007 Cefuroxime Hives 09/17/2007 Morphine Hives 02/26/2008 Pertussis Immune Globulin Unknown Reaction 09/03/2013 Tetanus Toxoid Swelling 02/26/2008 Ziprasidone Other 02/17/2010 Made b/p go up and come down Geodon documented as of this encounter (statuses as of 01/28/2019) Medications Medication Sig Dispensed Refills Start Date [...] as of this encounter (statuses as of 01/28/2019) Active Problems Problem Noted Date Recurrent seizures 12/30/2018 Chest pain 11/03/2018 Bipolar 2 disorder 09/26/2018 Overview: -continue home dose of lithium and vraylar -[place] level pending Personality disorder, unspecified 05/05/2018 Overview: [...] neurology -Patient to be placed on telemetry -[place] level pending -seizure precaution ADHD (attention deficit hyperactivity disorder) 09/17/2007 Overview: -Stable documented as of this encounter (statuses as of 01/28/2019) Immunizations Name Administration Dates Next Due DTAP [...] Sign Reading Time Taken Comments Blood Pressure 109/66 2019 6:26 PM EDT Pulse 64 2019 6:26 PM EDT Temperature 36.4 2019 6:26 PM EDT C (97.6 F) Respiratory Rate 18 2019 6:26 PM EDT Oxygen Saturation 97% 2019 6:26 PM EDT Inhaled Oxygen Concentration - - Weight - - Height - - Body Mass Index - - documented in this encounter Discharge Instructions InstructionsJosue Bar MD - 2019Wear air cast for support Take ibuprofen or tylenol for pain Follow up with primary care if symptoms are not getting better in a week. documented in this encounter Plan of Treatment Date Type Specialty Care Team Description 02/06/2019 Office Visit Family Practice Lucia Ernandez MD [facility] [place] [address] 02/10/2019 [facility] [address] 11/18/2019 Office Visit Cardiology Kitty Iglesias CRNP [address] [place] [address] [phone] Health Maintenance Due Date Last Done Comments [...] Patient-Stated? Author Type Problems Progress Depression Depression Sara Nassar screen (PHQ-9) MALINDA Urban total score < 5 Note: This is an individualized treatment (depression) goal for Rob Flor: Displayed above is your goal for a depression screening (PHQ-9) score that would indicate good control of your depression. Work with your Spline Rolling Machine Job Setter General No Rajni Nassar RN Note: This is an individualized treatment (frequent ED use) goal for Rob Flor : Please work with your Spline Rolling Machine Job Setter, who will assist you in meeting your [...] Name Priority Date/Time Associated Diagnosis Comments XR ANKLE MIN 3 STAT 2019 5:19 PM Results for this VIEWS LEFT EDT procedure are in (STANDARD) the results section. documented in this encounter Results XR ANKLE MIN 3 VIEWS LEFT (STANDARD) [...] Gray Matta MD on 2019 5:30 PM documented in this encounter Visit Diagnoses Diagnosis First degree ankle sprain, right, initial encounter - Primary documented in this encounter Insurance Payer Benefit Plan / Subscriber ID Effective Dates Phone Address Type Group [place]ID [place] xxxxxxxx 2016-Present Medicaid [place] MEDICAID Guarantor Name Account Type Relation to Date of Phone Billing Patient Address Rob Flor Personal/Family 1990 06/04 [place] [address] documented as of this encounter Advance Directives [...]
--- OUTSIDE RECORDS SUMMARY | 2019-03-07 18:14 | XMS REPORT | Summary of Care ---
:1990 Demographics Address [address] [place] [address] Home Phone Mobile Phone Email Address Preferred Language Nigerien Marital Status Not or Taoism Affiliation Unknown Race White Ethnic Group Not or Author Organization [facility] Address [address] [address] Care Team Providers Name Role Phone Lucia Ernandez MD Primary Care Provider Reason for Visit Reason Comments Psychiatric Evaluation Encounter Details Date Type Department Care Team Description 02/09/2019 - Emergency [facility] Emergency Department Oleg [place] Emergency 02/10/2019 [address] [place] [address] [address] [phone] [place] [address] Allergies Active Allergy Reactions Severity Noted Date Comments Augmentin Hives 09/17/2007 Cefaclor Monohydrate Hives 09/17/2007 Cefuroxime Hives 09/17/2007 Morphine Hives 02/26/2008 Pertussis Immune Globulin Unknown Reaction 09/03/2013 Tetanus Toxoid Swelling 02/26/2008 Ziprasidone Other 02/17/2010 Made b/p go up and come down Geodon documented as of this encounter (statuses as of 02/11/2019) Medications Medication Sig Dispensed Refills Start Date [...] as of this encounter (statuses as of 02/11/2019) Active Problems Problem Noted Date Recurrent seizures 12/30/2018 Chest pain 11/03/2018 Bipolar 2 disorder 09/26/2018 Overview: -continue home dose of lithium and vraylar -[place] level pending Personality disorder, unspecified 05/05/2018 Overview: [...] neurology -Patient to be placed on telemetry -[place] level pending -seizure precaution ADHD (attention deficit hyperactivity disorder) 09/17/2007 Overview: -Stable documented as of this encounter (statuses as of 02/11/2019) Immunizations Name Administration Dates Next Due DTAP [...] Time Taken Comments Blood Pressure 106/64 02/09/2019 9:34 PM EDT Pulse 66 02/09/2019 9:34 PM EDT Temperature 36.7 02/09/2019 9:34 PM EDT C (98 F) Respiratory Rate 16 02/09/2019 9:34 PM EDT Oxygen Saturation 98% 02/09/2019 9:34 PM EDT Inhaled Oxygen Concentration - - Weight 68.9 kg (152 lb) 02/09/2019 9:34 PM EDT Height 193 cm (6' 4") 02/09/2019 9:34 PM EDT Body Mass Index 18.5 02/09/2019 9:34 PM EDT documented in this encounter Discharge Instructions Karen Mcnair RN - 02/10/2019 Emergency Room Psychiatric Discharge and Referral Plan 02/10/2019 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 Agency Referred to: [address] [address], [place] [address] [phone] open intake Saturday to Saturday 0900am to 0500pm- appointments are first come first serve, advise getting there at 0900am. Referral Appointment date/ time: Patient to schedule Discharge plan reviewed with:: Dr. Rosario Some test results, such as cultures, take multiple days to generate a result. If you have pending tests and there is a positive result, a provider from our Emergency Department will notify you as soon as possible. Local Mental Health Hotline Numbers [facility] [phone] (24 hours) [facility] [phone] (24 hours) [facility] [phone] (24 hours) [facility] [phone] (Help Line) [facility] [phone] (Help Line) [facility] [phone] (Help Line) [facility] [phone] (Help Line) [facility] [phone] (Business Hours) [phone] (After Hours) [facility] [phone] (Business Hours) [phone] (Command Center- will page illusionistfoster care worker) [facility] Child Hotline [phone] [facility] [phone] (24 Hours) [facility] [phone] (24 Hours) [facility] [phone] (24 Hours) [facility] [phone] (Business Hours) [phone] (After Hours) [facility] [phone] (Business Hours) [phone] (Slot Floorperson Dept. After Hours) [facility] [phone] (24 Hours) [facility] Child Hotline [phone] >>>>>>> [facility] HOTLINE: [phone] (3779 ) <<<<<<< ~~~~~ PLEASE CALL 911 FOR ANYTHING LIFE THREATENING ~~~~~ documented in this encounter Plan of Treatment Date Type Specialty Care Team Description 11/18/2019 Office Visit Cardiology Kitty Iglesias CRNP [address] [address] [phone] Health Maintenance Due Date Last Done Comments [...] Patient-Stated? Author Type Problems Progress Depression Depression Sraa Nassar screen (PHQ-9) MALINDA Urban total score < 5 Note: This is an individualized treatment (depression) goal for Rob Flor: Displayed above is your goal for a depression screening (PHQ-9) score that would indicate good control of your depression. Work with your Slip Mixer General No Rajni Nassar RN Note: This is an individualized treatment (frequent ED use) goal for Rob Flor : Please work with your Slip Mixer, who will assist you in meeting your [...] Associated Comments Diagnosis URINE DRUG SCREEN STAT 02/09/2019 10:47 Results [...] in this encounter Results URINE DRUG SCREEN (02/09/2019 10:47 PM EDT) Amphetamines Negative Negative [facility] Barbiturates Negative Negative [facility] Benzodiazepine Negative Negative [facility] Cannabinoids Negative Negative [facility] Cocaine Negative Negative [facility] Methadone Negative Negative [facility] Opiates Negative Negative [facility] Oxycodone Negative Negative [facility] Phencyclidine Negative Negative [facility] Propoxyphene Negative Negative [facility] Specimen Urine Narrative Performed At Drug [facility] Cut-off Level Amphetamine (AMP/METH) 1000 ng/ml [...] concentration. Confirmation is available upon request to [employer]. Request for confirmation must be made within 5 days of the drug screen result. Performing Organization Address [facility] Phone Number [facility] [address] [place] [address] CBC NO DIFFERENTIAL (02/09/2019 10:39 PM EDT) WBC Count 6.84Comment: 4.23 - 9.07 [facility] Methodology was K/uL [facility] changed 06/05/2018. Please note updated reference range and units. RBC Count 4.93 4.30 - 5.89 [facility] M/UL [facility] Hemoglobin 16.0 13.7 - 17.5 [facility] g/dL [facility] Hematocrit 45.6 40.1 - 51.0 % [facility] MCV 92.5 (H) 79.0 - 92.2 [facility] FL [facility] MCH 32.5 (H) 25.7 - 32.2 [facility] PG [facility] MCHC 35.1 32.3 - 36.5 [facility] g/dL [facility] Platelet Count 192 163 - 337 [facility] K/uL [facility] MPV 9.5 9.4 - 12.4 FL [facility] RDW 12.4 11.6 - 14.4 % [facility] Specimen Blood Performing Organization Address [facility] Phone Number [facility] [address] [place] [id number] ACETAMINOPHEN LEVEL (02/09/2019 10:39 PM EDT) Acetaminophen <10.0 10 .0 - 30.0 ug/mL [facility] Specimen Blood Performing Organization Address [facility] Phone Number [facility] [address] [place] [address] [phone] SALICYLATE LEVEL (02/09/2019 10:39 PM EDT) Salicylate <1 (L) 2 - 20 mg/dl [facility] Specimen Blood Performing Organization Address [facility] Phone Number [facility] [address] [place] [address] ALCOHOL LEVEL, MEDICAL (02/09/2019 10:39 PM EDT) Blood Alcohol <10.00 0.00 - 10.00 [facility] MG/DL [facility] Alcohol % Comment: None None Detected % [facility] Detected [facility] Specimen Blood Performing Organization Address [facility] Phone Number [facility] [address] [place] [address] [phone] THYROID STIMULATING HORMONE (02/09/2019 10:39 PM EDT) TSH 1.54 0.47 - 4.68 uIu/ml [facility] Specimen Blood Performing Organization Address [facility] Phone Number [facility] [address] [place] [address] [phone] COMPREHENSIVE METABOLIC PANEL (02/09/2019 10:39 PM EDT) Sodium 140 134 - 145 mmol/L [facility] Potassium 4.0 3.5 - 5.1 mmol/L [facility] Chloride 103 98 - 107 mmol/L [facility] CO2 28 22 - 30 mmol/L [facility] Calcium 9.9 8.3 - 10.1 mg/dl [facility] Albumin 4.4 3.5 - 5.0 g/dl [facility] BUN 18 9 - 20 mg/dl [facility] Creatinine 0.8 0.8 - 1.5 mg/dl [facility] Glucose 94 70 - 99 mg/dl [facility] Total Protein 7.3 6.3 - 8.2 g/dl [facility] Total Bilirubin 0.3 0.0 - 1.1 MG/DL [facility] AST 33 17 - 59 U/L [facility] ALT 24 21 - 72 U/L [facility] Alkaline 74 40 - 150 U/L [facility] Phosphatase [facility] eGFR >60 See Interpretation [facility] Comment: Below ml/min/1.73ml GROUP Sq LAB[facility]AT[facility] [...] Study Equation which can be found at: https://www.kidney.org/content/cekn-nrznw-tqdrwkzw BUN/Creatinine 23 (H) 6 - 22 RATIO [facility] Anion Gap 9 3 - 11 mmol/L [facility] A/G Ratio 1.5 0.8 - 2.0 ratio [facility] Specimen Blood Performing Organization Address City/State/Zipcode Phone Number [facility] [address] [place] [address] [phone] documented in this encounter Visit Diagnoses Diagnosis Depression, unspecified depression type - Primary documented in this encounter Administered Medications Medication Order MAR Action Action Date Dose Rate Site divalproex ([facility]) 24 hour Given 02/10/2019 9:14 AM EDT 500 mg tablet 500 mg 500 mg, Oral, NOW, 1 dose, 02/10/19 at 0700 documented in this encounter Insurance Payer Benefit Plan / Subscriber ID Effective Dates Phone Address Type Group MEDICAID [place] xxxxxxxx 2016-Present Medicaid [place] MEDICAID Guarantor Name Account Type Relation to Date of Phone Billing Patient Address Rob Flor Personal/Family 1990 [address] [place] (Home) [place] [address] documented as of this encounter Advance Directives [...]
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
[2019-03-07 18:21] LABS: ABS Eosinophils 0.1 10^3/ul (0-0.6); ABS Lymphocytes 2.2 10^3/ul (1.0-4.8); ABS Monocytes 0.6 10^3/ul (0-0.8); ABS Neutrophils 5.1 10^3/ul (1.5-7.7); Eosinophil % 0.8 %; Hematocrit 48 % (42-52); Mean Corpuscular HGB Conc 35 g/dL (31-36); Mean Corpuscular Hemoglobin 33 pg (27-31); Mean Corpuscular Volume 94 fL (80-94); Mean Platelet Volume 7.7 fL (7.4-10.4); Nucleated Red Blood Cells % 0.1; Platelet Count 198 10^3/uL (150-450); Red Blood Count 5.12 10^6 /uL (4.18-5.48); Red Cell Distribution Width 13 % (10-15)
[2019-03-07 18:37] LABS: ALT 12 U/L (7-52); AST 19 U/L (13-39); Albumin 4.4 g/dL (3.2-5.2); Albumin/Globulin Ratio 1.9 (1-3); Alkaline Phosphatase 47 U/L (34-104); Anion Gap 6 mmol/L (2-11); BUN/Creatinine Ratio 21.4 (8-20); Blood Urea Nitrogen 18 mg/dL (6-24); C Reactive Protein < 1.00 mg/L (<8.01); CO2 Carbon Dioxide 26 mmol/L (22-32); Calcium 9.6 mg/dL (8.6-10.3); Chloride 104 mmol/L (101-111); EGFR African American 132.6 (>60); EGFR Non-African American 109.6 (>60); Globulin 2.3 g/dL (2-4); Glucose 85 mg/dL (70-100); Sodium 136 mmol/L (135-145); Total Protein 6.7 g/dL (6.4-8.9)
[2019-03-07 18:59] VITALS: BP 106/67
== END 2019-03-07 19:10 | disposition home or self-care (01) ==
LOC: ED 17:18
DX: G40.909 Epilepsy, unspecified, not intractable, without status epilepticus (principal); Z79.899 Other long term (current) drug therapy; Z88.1 Allergy status to other antibiotic agents; Z88.5 Allergy status to narcotic agent; Z88.7 Allergy status to serum and vaccine; Z88.8 Allergy status to other drugs, medicaments and biological substances
CPT/HCPCS: 36415; 80053; 83605; 85025; 86140; 99282